=== PATIENT | male | born 1955 | race Caucasian/White ===

== ENCOUNTER 2016-12-12 14:37 | Inpatient (IN) | payer OTHER ==
[2016-12-12] MEDS ORDERED: Sodium Chloride 0.9% 1,000 ML IV ONE (15:12)
[2016-12-12] MEDS ORDERED: Sodium Chloride 0.9% 10 ML Syringe FLUSH PRN (15:12)
[2016-12-12] MEDS ORDERED: Pantoprazole 40 MG Vial IVPUSH ONE (15:13)
--- NOTE | 2016-12-12 15:20 | EDM.PDOC ---
ED HPI GI/ABDOMINAL - General Chief Complaint: Gastrointestinal Problem Stated Complaint: [facility] Time Seen by Provider: 12/12/16 14:52 Source of Information: Reports: Patient History Limitations: Reports: No limitations - History of Present Illness INITIAL COMMENTS - FREE TEXT/NARRATIVE: Patient is a 61-year-old male who presents to the ED complaining of black tarry stools for the past week. States he has been experiencing intermittent dizziness with body position changes with a few presyncopal episodes. States when he is bending over or exerting himself he gets increasingly short of breath , dizzy, with lightheadedness and develop some blurred vision. States the episodes have increased over the past week. States approximately 3 days prior to onset of black tarry stools he had some stomach pain with nausea and black hard stools present. Today he noticed some bright red blood within the toilet bowl described as minimal. Also stool has changed from hard to very loose today. States he's feeling weak, short of breath with exertion, has to stop multiple times to catch his breath. Today he was bending over and had a presyncopal episode thus prompting him to call 911. Denies any headache, fever/ chills, sore throat, chest pain, shortness of breath at rest, abdominal pain, recent out of country travel, questionable bad food, or prior history of GI bleed. Denies ibuprofen or daily asa use. States approximately 2 years ago he had EGD/colonoscopy with no abnormal findings. Past medical history includes hypertension and is on 3 different medications. Surgical history includes umbilical hernia with 2 inguinal hernias. Patient does not smoke, only occasionally alcohol use, and denies recreational drug use. No family history of colon cancer. Timing/Duration: Reports: Intermittent Improves with: Reports: lying down, other (sittign) Worsens with: Reports: other (bending over/exerting ) Context: Denies: sick contact, bad/questionable food, out of country travel, recent surgery, recent trauma Associated Symptoms: Reports: diarrhea, bloody stools, loss of appetite, malaise. 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: Other (see below) (none stated) - Related Data Allergies/ADRs: Allergies Allergy/AdvReac Type Severity Reaction Status Date / Time No Known Allergies Allergy Verified 12/12/16 14:48 Home Meds: Home Meds Hydrochlorothiazide 50 mg PO DAILY 12/12/16 [History] Lisinopril 20 mg PO DAILY 12/12/16 [History] amLODIPine [Norvasc] 10 mg PO DAILY 12/12/16 [History] Past Medical History Cardiovascular History: Reports: Hypertension - Past Surgical History GI Surgical History: Reports: Hernia, abdominal Social & Family History - Tobacco Use Smoking Status *Q: Never Smoker - Caffeine Use Caffeine Use: Reports: Coffee, Soda - Recreational Drug Use Recreational Drug Use: No ED ROS GENERAL - Review of Systems Review Of Systems: See Below Constitutional: Reports: malaise, weakness, fatigue, decreased appetite. Denies : fever, chills HEENT: Reports: No symptoms Respiratory: Reports: Cough, Sputum (clear phlegm). Denies: Shortness of Breath (at rest) Cardiovascular: Reports: Dyspnea on exertion, Lightheadedness, Syncope (near). Denies: Chest pain GI/Abdominal: Reports: Black stool, Bloody stool, Diarrhea, Decreased appetite, Melena. Denies: Abdominal pain, Nausea, Vomiting : Reports: no symptoms Musculoskeletal: Reports: no symptoms Skin: Reports: other (pale) Neurological: Reports: Dizziness (inermittent) ED EXAM, GI/ABD - Physical Exam Exam: See Below Exam Limited By: No limitations General Appearance: alert, WD/WN, no apparent distress Eyes: bilateral: pale conjunctiva Ears: hearing grossly normal Nose: normal inspection Throat/Mouth: Normal inspection, Normal oropharynx, Normal voice, No airway compromise Neck: normal inspection, supple. No: non-tender, lymphadenopathy (L), lymphadenopathy (R) Respiratory/Chest: no respiratory distress, lungs clear, normal breath sounds, no accessory muscle use, chest non-tender Cardiovascular: normal peripheral pulses, no murmur, tachycardia GI/Abdominal: normal bowel sounds, soft, non tender, no organomegaly, no distention, no abnormal bruit, no mass Rectal (Males) Exam: Normal rectal tone, Prostate normal, Black stool, Heme + stool. No: Hemorrhoids, Tenderness Back Exam: normal inspection. No: CVA tenderness (L), CVA tenderness (R) Neurological: alert, oriented, CN II-XII intact, normal cognition, no motor/ sensory deficits Psychiatric: normal affect, normal mood Skin Exam: Warm, Dry, Intact, Other (pale) Course - Vital Signs Last Recorded V/S: Last Vital Signs Temp 98.3 F 12/12/16 22:32 Pulse 85 12/12/16 22:32 Resp 16 12/12/16 20:39 BP 115/76 12/12/16 22:32 Pulse Ox 98 12/12/16 20:39 Orthostatic Blood Pressure [ 79/59 Standing] Orthostatic Blood Pressure [ 103/75 Sitting] Orthostatic Blood Pressure [ 118/80 Supine] - Orders/Labs/Meds Orders: Active Orders 24 hr Category Date Time Status Notify Provider [RC] ASDIRECTED Care 12/12/16 16:05 Active NPO Now [Nothing per Oral Now Diet] [DIET] Diet 12/12/16 Dinner Active Chest 1V Frontal [CR] Stat Exams 12/12/16 15:12 Taken Sodium Chloride 0.9% [Saline Flush] Med 12/12/16 15:12 Active 10 ml FLUSH ASDIRECTED PRN Peripheral IV Insertion Adult [OM.PC] Stat Oth 12/12/16 15:12 Ordered Transfuse PRBC [Transfuse Red Blood Cells] [COMM] Stat Ot 12/12/16 16:05 Ordered Medication Orders Acetaminophen (Tylenol) 650 mg PO Q4H PRN PRN Reason: Pain (Mild 1-3)/fever Hydrocodone Bitart/Acetaminophen ([place] 325-5 Mg) 1 tab PO Q4H PRN PRN Reason: Pain (moderate 4-6) Albuterol (Proventil Neb Soln) 2.5 mg NEB Q2H PRN PRN Reason: Shortness Of Breath/wheezing Amlodipine Besylate (Norvasc) 10 mg PO DAILY [facility] Hydrochlorothiazide (Hydrochlorothiazide) 50 mg PO DAILY [facility] Hydromorphone HCl (Dilaudid) 0.25 mg IVPUSH Q2H PRN PRN Reason: Pain (severe 7-10) Dextrose/Sodium Chloride (Dextrose 5%-1/2 Ns) 1,000 mls @ 150 mls/hr IV ASDIRECTED ERMIAS Lisinopril (Prinivil) 20 mg PO DAILY ERMIAS Ondansetron HCl (Zofran) 4 mg IV Q6H PRN PRN Reason: Nausea/Vomiting Pantoprazole Sodium (Protonix Iv) 40 mg IV Q12HR ERMIAS Last Admin: 12/12/16 20:41 Dose: 40 mg Sodium Chloride (Saline Flush) 10 ml FLUSH ASDIRECTED PRN PRN Reason: Keep Vein Open Last Admin: 12/12/16 15:37 Dose: 10 ml Temazepam (Restoril) 30 mg PO BEDTIME PRN PRN Reason: Sleep Labs: Laboratory Tests 12/12/16 12/12/16 12/12/16 Range/Units 15:48 15:48 15:48 WBC 9.71 H (4.23-9.07) K/mm3 RBC 1.68 L (4.63-6.08) M/mm3 Hgb 5.0 L* (13.7-17.5) gm/L Hct 15.8 L (40.1-51.0) % MCV 94.0 H (79.0-92.2) fl MCH 29.8 (25.7-32.2) pg MCHC 31.6 L (32.2-35.5) g/dl RDW Std Deviation 46.8 H (35.1-43.9) fL Plt Count 194 (163-337) K/mm3 MPV 10.0 (9.4-12.3) fl Neut % (Auto) 77.0 H (34.0-67.9) % Lymph % (Auto) 15.1 L (21.8-53.1) % [place] % (Auto) 4.9 L (5.3-12.2) % Eos % (Auto) 2.4 (0.8-7.0) Baso % (Auto) 0.4 (0.1-1.2) % Neut # (Auto) 7.47 H (1.78-5.38) K/mm3 Lymph # (Auto) 1.47 (1.32-3.57) K/mm3 [place] # (Auto) 0.48 (0.30-0.82) K/mm3 Eos # (Auto) 0.23 (0.04-0.54) K/mm3 Baso # (Auto) 0.04 (0.01-0.08) K/mm3 Manual Slide Review Abnormal smear PT 10.3 (8.0-13.0) SECONDS INR 0.95 APTT (22-36) SECONDS Sodium 145 (136-145) mEq/L Potassium 3.9 (3.5-5.1) mEq/L Chloride 111 H (98-107) mEq/L Carbon Dioxide 27 (21-32) mEq/L Anion Gap 10.9 (5-15) BUN 38 H (7-18) mg/dL Creatinine 1.4 H (0.7-1.3) mg/dL Est Cr Clr Drug Dosing 64.42 mL/min Estimated GFR (MDRD) 52 (>60) mL/min BUN/Creatinine Ratio 27.1 H (14-18) Glucose 133 H (80-115) mg/dL Calcium 8.1 L (8.5-10.1) mg/dL Total Bilirubin 0.2 (0.2-1.0) mg/dL AST 8 L (15-37) U/L ALT 11 L (16-63) U/L Alkaline Phosphatase 43 L (46-116) U/L Troponin I 0.020 (0.00-0.056) ng/mL C-Reactive Protein < 0.2 (<1.0) mg/dL Total Protein 5.0 L (6.4-8.2) g/dl Albumin 2.5 L (3.4-5.0) g/dl Globulin 2.5 gm/dL Albumin/Globulin Ratio 1.0 (1-2) Lipase 138 (73-393) U/L Urine Color (Yellow) Urine Appearance (Clear) Urine pH (5.0-8.0) Ur Specific [place] (1.005-1.030) Urine Protein (Negative) Urine Glucose (UA) (Negative) Urine Ketones (Negative) Urine Occult Blood (Negative) Urine Nitrite (Negative) Urine Bilirubin (Negative) Urine Urobilinogen (0.2-1.0) Ur Leukocyte Esterase (Negative) Urine RBC (0-5) /hpf Urine WBC (0-5) /hpf Ur Epithelial Cells (0-5) /hpf Urine Bacteria (FEW) /hpf Urine Mucus (FEW) /hpf Blood Type Gel Antibody Screen Crossmatch 12/12/16 12/12/16 12/12/16 Range/Units 15:48 15:48 15:48 WBC (4.23-9.07) K/mm3 RBC (4.63-6.08) M/mm3 Hgb (13.7-17.5) gm/L Hct (40.1-51.0) % MCV (79.0-92.2) fl MCH (25.7-32.2) pg MCHC (32.2-35.5) g/dl RDW Std Deviation (35.1-43.9) fL Plt Count (163-337) K/mm3 MPV (9.4-12.3) fl Neut % (Auto) (34.0-67.9) % Lymph % (Auto) (21.8-53.1) % [place] % (Auto) (5.3-12.2) % Eos % (Auto) (0.8-7.0) Baso % (Auto) (0.1-1.2) % Neut # (Auto) (1.78-5.38) K/mm3 Lymph # (Auto) (1.32-3.57) K/mm3 [place] # (Auto) (0.30-0.82) K/mm3 Eos # (Auto) (0.04-0.54) K/mm3 Baso # (Auto) (0.01-0.08) K/mm3 Manual Slide Review PT (8.0-13.0) SECONDS INR APTT 21 L (22-36) SECONDS Sodium (136-145) mEq/L Potassium (3.5-5.1) mEq/L Chloride (98-107) mEq/L Carbon Dioxide (21-32) mEq/L Anion Gap (5-15) BUN (7-18) mg/dL Creatinine (0.7-1.3) mg/dL Est Cr Clr Drug Dosing mL/min Estimated GFR (MDRD) (>60) mL/min BUN/Creatinine Ratio (14-18) Glucose (80-115) mg/dL Calcium (8.5-10.1) mg/dL Total Bilirubin (0.2-1.0) mg/dL AST (15-37) U/L ALT (16-63) U/L Alkaline Phosphatase (46-116) U/L Troponin I (0.00-0.056) ng/mL C-Reactive Protein 0.6 (<1.0) mg/dL Total Protein (6.4-8.2) g/dl Albumin (3.4-5.0) g/dl Globulin gm/dL Albumin/Globulin Ratio (1-2) Lipase (73-393) U/L Urine Color (Yellow) Urine Appearance (Clear) Urine pH (5.0-8.0) Ur Specific [place] (1.005-1.030) Urine Protein (Negative) Urine Glucose (UA) (Negative) Urine Ketones (Negative) Urine Occult Blood (Negative) Urine Nitrite (Negative) Urine Bilirubin (Negative) Urine Urobilinogen (0.2-1.0) Ur Leukocyte Esterase (Negative) Urine RBC (0-5) /hpf Urine WBC (0-5) /hpf Ur Epithelial Cells (0-5) /hpf Urine Bacteria (FEW) /hpf Urine Mucus (FEW) /hpf Blood Type A POSITIVE Gel Antibody Screen Negative Crossmatch See Detail 12/12/16 Range/Units 16:08 WBC (4.23-9.07) K/mm3 RBC (4.63-6.08) M/mm3 Hgb (13.7-17.5) gm/L Hct (40.1-51.0) % MCV (79.0-92.2) fl MCH (25.7-32.2) pg MCHC (32.2-35.5) g/dl RDW Std Deviation (35.1-43.9) fL Plt Count (163-337) K/mm3 MPV (9.4-12.3) fl Neut % (Auto) (34.0-67.9) % Lymph % (Auto) (21.8-53.1) % [place] % (Auto) (5.3-12.2) % Eos % (Auto) (0.8-7.0) Baso % (Auto) (0.1-1.2) % Neut # (Auto) (1.78-5.38) K/mm3 Lymph # (Auto) (1.32-3.57) K/mm3 [place] # (Auto) (0.30-0.82) K/mm3 Eos # (Auto) (0.04-0.54) K/mm3 Baso # (Auto) (0.01-0.08) K/mm3 Manual Slide Review PT (8.0-13.0) SECONDS INR APTT (22-36) SECONDS Sodium (136-145) mEq/L Potassium (3.5-5.1) mEq/L Chloride (98-107) mEq/L Carbon Dioxide (21-32) mEq/L Anion Gap (5-15) BUN (7-18) mg/dL Creatinine (0.7-1.3) mg/dL Est Cr Clr Drug Dosing mL/min Estimated GFR (MDRD) (>60) mL/min BUN/Creatinine Ratio (14-18) Glucose (80-115) mg/dL Calcium (8.5-10.1) mg/dL Total Bilirubin (0.2-1.0) mg/dL AST (15-37) U/L ALT (16-63) U/L Alkaline Phosphatase (46-116) U/L Troponin I (0.00-0.056) ng/mL C-Reactive Protein (<1.0) mg/dL Total Protein (6.4-8.2) g/dl Albumin (3.4-5.0) g/dl Globulin gm/dL Albumin/Globulin Ratio (1-2) Lipase (73-393) U/L Urine Color Light yellow (Yellow) Urine Appearance Clear (Clear) Urine pH 5.5 (5.0-8.0) Ur Specific [place] 1.015 (1.005-1.030) Urine Protein Negative (Negative) Urine Glucose (UA) Negative (Negative) Urine Ketones Negative (Negative) Urine Occult Blood Negative (Negative) Urine Nitrite Negative (Negative) Urine Bilirubin Negative (Negative) Urine Urobilinogen 0.2 (0.2-1.0) Ur Leukocyte Esterase Negative (Negative) Urine RBC 0-5 (0-5) /hpf Urine WBC 0-5 (0-5) /hpf Ur Epithelial Cells 0-5 (0-5) /hpf Urine Bacteria Rare (FEW) /hpf Urine Mucus Not seen (FEW) /hpf Blood Type Gel Antibody Screen Crossmatch Meds: Medications Generic Name Dose Route Start Last Admin Trade Name Freq PRN Reason Stop Dose Admin Acetaminophen 650 mg 12/12/16 17:19 Tylenol PO Q4H PRN Pain (Mild 1-3)/fever Hydrocodone Bitart/Acetaminophen 1 tab 12/12/16 17:19 Spencer 325-5 Mg PO Q4H PRN Pain (moderate 4-6) Albuterol 2.5 mg 12/12/16 17:19 Proventil Neb Soln NEB Q2H PRN Shortness Of Breath/wheezing Amlodipine Besylate 10 mg 12/13/16 09:00 Norvasc PO DAILY ERMIAS Hydrochlorothiazide 50 mg 12/13/16 09:00 Hydrochlorothiazide PO DAILY ERMIAS Hydromorphone HCl 0.25 mg 12/12/16 17:19 Dilaudid IVPUSH Q2H PRN Pain (severe 7-10) Dextrose/Sodium Chloride 1,000 mls @ 150 mls/hr 12/12/16 17:30 Dextrose 5%-1/2 Ns IV ASDIRECTED ERMIAS Lisinopril 20 mg 12/13/16 09:00 Prinivil PO DAILY ERMIAS Ondansetron HCl 4 mg 12/12/16 17:19 Zofran IV Q6H PRN Nausea/Vomiting Pantoprazole Sodium 40 mg 12/12/16 21:00 12/12/16 20:41 Protonix Iv IV 40 mg Q12HR ERMIAS Administration Sodium Chloride 10 ml 12/12/16 15:12 12/12/16 15:37 Saline Flush FLUSH 10 ml ASDIRECTED PRN Administration Keep Vein Open Temazepam 30 mg 12/12/16 17:19 Restoril PO BEDTIME PRN Sleep Discontinued Medications Generic Name Dose Route Start Last Admin Trade Name Freq PRN Reason Stop Dose Admin Sodium Chloride 1,000 mls @ 250 mls/hr 12/12/16 15:12 12/12/16 15:38 Normal Saline IV 12/12/16 19:11 250 mls/hr ONETIME ONE Administration Pantoprazole Sodium 40 mg 12/12/16 15:13 12/12/16 15:33 Protonix Iv IVPUSH 12/12/16 15:14 40 mg ONETIME ONE Administration - Re-Assessments/Exams Free Text/Narrative Re-Assessment/Exam: On examination patient is a pale to parents with dry oral mucosa. Vital signs, blood pressure stable, tachycardic, and afebrile. He is in no acute distress. Ordered peripheral IV with normal saline 250 mL per hour, and Protonix. Initial labs to include CBC, chem 14, CRP, lipase, type and screen, UA with micro, troponin, EKG, orthostatic vitals, and CXR. Hemoccult was grossly positive for blood. CXR: Reviewed with Dr. Jordan no acute findings noted. Final interpretation pending. EKG: Sinus tachycardia rate 110 with a SD interval 167 a QTC of 481. Mild ST depression in V4 V5. No reciprocal changes. No STEMI. Left axis deviation noted. CT study was ordered in error. Patient does not have abdominal pain. 12/12/16 15:23 12/12/16 1558 HGB back as 5.0. Discussed patient with Dr. Flores nonprofit manager General Surgeon. Request admitting to hospitalist service. She will see the patient this afternoon/evening. Labs reviewed. 1605 Ordered 3 units of PRBC. Patient has no cardiac history. Goal HGB is 8.0. Called Dr. Mohamud with no answer. Will try again in a few minutes. 12/12/16 16:51 Dr. Mohamud nonprofit manager hospitalist as accepted the patient. MCG obtained. Patient meets inpatient status, med surge with telemetry. Orders have been placed. Departure - Departure Time of Disposition: 16:53 Disposition: Admitted As Inpatient 66 Condition: fair Clinical Impression: Low hemoglobin, Orthostatic dizziness, Orthostatic hypotension GI (gastrointestinal bleed) Qualifiers: GI bleed type/associated pathology: unspecified gastrointestinal hemorrhage type Qualified Code(s): K92.2 - Gastrointestinal hemorrhage, unspecified - My Orders Last 24 Hours: My Active Orders 12/12/16 15:12 Chest 1V Frontal [CR] Stat Sodium Chloride 0.9% [Saline Flush] 10 ml FLUSH ASDIRECTED PRN Peripheral IV Insertion Adult [OM.PC] Stat 12/12/16 16:05 Notify Provider [RC] ASDIRECTED Transfuse PRBC [Transfuse Red Blood Cells] [COMM] Stat 12/12/16 Dinner NPO Now [Nothing per Oral Now Diet] [DIET] - Assessment/Plan Last 24 Hours: My Active Orders 12/12/16 15:12 Chest 1V Frontal [CR] Stat Sodium Chloride 0.9% [Saline Flush] 10 ml FLUSH ASDIRECTED PRN Peripheral IV Insertion Adult [OM.PC] Stat 12/12/16 16:05 Notify Provider [RC] ASDIRECTED Transfuse PRBC [Transfuse Red Blood Cells] [COMM] Stat 12/12/16 Dinner NPO Now [Nothing per Oral Now Diet] [DIET]
--- NOTE | 2016-12-12 16:56 | PCM.HP ---
H&P History of Present Illness - General Date of Service: 12/12/16 Admit Problem/Dx: GI Bleed Source of Information: Patient, Provider, RN notes reviewed History Limitations: Reports: No limitations - History of Present Illness Initial Comments - Free Text/Narative: This is a 61 yo white male with past medical hx/o HTN who comes in with 1 week hx/o of black tarry stools associated with dizziness, lightheadedness, weakness , shortness of breath and a few episode of near syncope. Patient reports that he had stomach pain associated with nausea and vomiting 3 days prior to onset of black tarry stools. Patient carries no hx/o constipation but today he noticed some bright red blood on the toilet and his stool is now more loose then usual. Patient admits to having sick contact with his older brother who the had the same symptoms. He does not re-call sharing same food or drinks with him. He does admit however in the the past, he had stomach aches that would get better with milk. Patient carries a hx/o GERD but lately it has not given him any trouble. Currently denies any fever, chills, no chest pain, abdominal pain, nausea or vomiting. Patient denies any previous GI bleed in the past. His most recent endoscopy was 2- years ago without abnormal findings. His initial work up in ED shows a CBC remarkable for WBC of 9.71, Hgb 5, Hct of 15.8, and MCV of 94. His chemistry is remarkable for Cl of 111, BUN of 38, Cr of 1.4, BS of 133, Ca of 98.1, AST of 8, ALT of 11. Alk Phos of 43, Total protein of 5.0, and Albumin of 2.5. His UA is negative for UTI. His CXR shows no acute abnormal findings. Patient will be admitted under the hospitalist services for GI Bleed. His code status is full. - Related Data Allergies/Adverse Reactions: Allergies Allergy/AdvReac Type Severity Reaction Status Date / Time No Known Allergies Allergy Verified 12/12/16 14:48 Home Medications: Home Meds Hydrochlorothiazide 50 mg PO DAILY 12/12/16 [History] Lisinopril 20 mg PO DAILY 12/12/16 [History] amLODIPine [Norvasc] 10 mg PO DAILY 12/12/16 [History] Past Medical History Cardiovascular History: Reports: Hypertension - Past Surgical History GI Surgical History: Reports: Hernia, abdominal Social & Family History - Tobacco Use Smoking Status *Q: Never Smoker - Caffeine Use Caffeine Use: Reports: Coffee, Soda - Recreational Drug Use Recreational Drug Use: No H&P Review of Systems - Review of Systems: Review Of Systems: See Below General: Reports: malaise, weakness, fatigue, decreased appetite. Denies: fever , chills HEENT: Reports: no symptoms Pulmonary: Reports: Cough, Sputum. Denies: Shortness of Breath Cardiovascular: Reports: dyspnea on exertion, lightheadedness, blood pressure problem, other (near syncope). Denies: chest pain, palpitations Gastrointestinal: Reports: Black stool, Bloody stool, Diarrhea, Melena. Denies : Abdominal pain, Nausea, Vomiting Genitourinary: Reports: no symptoms Musculoskeletal: Reports: no symptoms Skin: Denies: cyanosis, jaundice, bruising, rash, erythema, wound Psychiatric: Denies: depression, anxiety, hallucinations, suicidal ideation, hallucinations (auditory) Neurological: Reports: Dizziness, Weakness. Denies: Confusion, Seizure, Syncope , Difficulty Walking Hematologic/Lymphatic: Reports: anemia Immunologic: Reports: no symptoms Exam - Exam Exam: See Below - Vital Signs Vital Signs: Last Vital Signs Temp 36.9 C 12/12/16 14:42 Pulse 112 H 12/12/16 14:42 Resp 19 12/12/16 14:42 BP 132/89 12/12/16 14:42 Pulse Ox 98 12/12/16 14:42 Orthostatic Blood Pressure [ 79/59 Standing] Orthostatic Blood Pressure [ 103/75 Sitting] Orthostatic Blood Pressure [ 118/80 Supine] Weight: 90.718 kg - Exam General: alert, oriented, other (Pale) HEENT: Conjunctiva clear, EACs clear, EOMI, Hearing intact, Mucosa moist & pink , Nares patent, Normal nasal septum, Posterior pharynx clear, Pupils equal, Pupils reactive Neck: supple, trachea midline, 2+ carotid pulse wo bruit Lungs: Clear to auscultation, Normal respiratory effort Cardiovascular: regular rate, regular rhythm Abdomen: normal bowel sounds, soft. No: organomegaly, peritoneal signs, distention, guarding, rigidity, rebound, tenderness Rectal (Males) Exam: Deferred Back Exam: normal inspection, decreased range of motion Extremities: normal inspection, normal pulses, other. No: clubbing, cyanosis, calf tenderness, edema Skin: warm, dry, intact, cool, other (Pale) Neuro Extensive - Mental Status: oriented x3, normal cognition, memory intact Neuro Extensive - Motor, Sensory, Reflexes: CN II-XII intact, normal gait Psychiatric: alert, normal affect, normal mood. No: homicidal ideation, hallucinations - Patient Data Lab Results last 24 hrs: Laboratory Results - last 24 hr 12/12/16 12/12/16 12/12/16 Range/Units 15:48 15:48 15:48 WBC 9.71 H (4.23-9.07) K/mm3 RBC 1.68 L (4.63-6.08) M/mm3 Hgb 5.0 L* (13.7-17.5) gm/L Hct 15.8 L (40.1-51.0) % MCV 94.0 H (79.0-92.2) fl MCH 29.8 (25.7-32.2) pg MCHC 31.6 L (32.2-35.5) g/dl RDW Std Deviation 46.8 H (35.1-43.9) fL Plt Count 194 (163-337) K/mm3 MPV 10.0 (9.4-12.3) fl Neut % (Auto) 77.0 H (34.0-67.9) % Lymph % (Auto) 15.1 L (21.8-53.1) % [place] % (Auto) 4.9 L (5.3-12.2) % Eos % (Auto) 2.4 (0.8-7.0) Baso % (Auto) 0.4 (0.1-1.2) % Neut # (Auto) 7.47 H (1.78-5.38) K/mm3 Lymph # (Auto) 1.47 (1.32-3.57) K/mm3 [place] # (Auto) 0.48 (0.30-0.82) K/mm3 Eos # (Auto) 0.23 (0.04-0.54) K/mm3 Baso # (Auto) 0.04 (0.01-0.08) K/mm3 Manual Slide Review Abnormal smear PT 10.3 (8.0-13.0) SECONDS INR 0.95 APTT (22-36) SECONDS Sodium 145 (136-145) mEq/L Potassium 3.9 (3.5-5.1) mEq/L Chloride 111 H (98-107) mEq/L Carbon Dioxide 27 (21-32) mEq/L Anion Gap 10.9 (5-15) BUN 38 H (7-18) mg/dL Creatinine 1.4 H (0.7-1.3) mg/dL Est Cr Clr Drug Dosing 64.42 mL/min Estimated GFR (MDRD) 52 (>60) mL/min BUN/Creatinine Ratio 27.1 H (14-18) Glucose 133 H (80-115) mg/dL Calcium 8.1 L (8.5-10.1) mg/dL Total Bilirubin 0.2 (0.2-1.0) mg/dL AST 8 L (15-37) U/L ALT 11 L (16-63) U/L Alkaline Phosphatase 43 L (46-116) U/L Troponin I 0.020 (0.00-0.056) ng/mL C-Reactive Protein < 0.2 (<1.0) mg/dL Total Protein 5.0 L (6.4-8.2) g/dl Albumin 2.5 L (3.4-5.0) g/dl Globulin 2.5 gm/dL Albumin/Globulin Ratio 1.0 (1-2) Lipase 138 (73-393) U/L Urine Color (Yellow) Urine Appearance (Clear) Urine pH (5.0-8.0) Ur Specific [place] (1.005-1.030) Urine Protein (Negative) Urine Glucose (UA) (Negative) Urine Ketones (Negative) Urine Occult Blood (Negative) Urine Nitrite (Negative) Urine Bilirubin (Negative) Urine Urobilinogen (0.2-1.0) Ur Leukocyte Esterase (Negative) Urine RBC (0-5) /hpf Urine WBC (0-5) /hpf Ur Epithelial Cells (0-5) /hpf Urine Bacteria (FEW) /hpf Urine Mucus (FEW) /hpf Blood Type Gel Antibody Screen Crossmatch 12/12/16 12/12/16 12/12/16 Range/Units 15:48 15:48 16:08 WBC (4.23-9.07) K/mm3 RBC (4.63-6.08) M/mm3 Hgb (13.7-17.5) gm/L Hct (40.1-51.0) % MCV (79.0-92.2) fl MCH (25.7-32.2) pg MCHC (32.2-35.5) g/dl RDW Std Deviation (35.1-43.9) fL Plt Count (163-337) K/mm3 MPV (9.4-12.3) fl Neut % (Auto) (34.0-67.9) % Lymph % (Auto) (21.8-53.1) % [place] % (Auto) (5.3-12.2) % Eos % (Auto) (0.8-7.0) Baso % (Auto) (0.1-1.2) % Neut # (Auto) (1.78-5.38) K/mm3 Lymph # (Auto) (1.32-3.57) K/mm3 [place] # (Auto) (0.30-0.82) K/mm3 Eos # (Auto) (0.04-0.54) K/mm3 Baso # (Auto) (0.01-0.08) K/mm3 Manual Slide Review PT (8.0-13.0) SECONDS INR APTT 21 L (22-36) SECONDS Sodium (136-145) mEq/L Potassium (3.5-5.1) mEq/L Chloride (98-107) mEq/L Carbon Dioxide (21-32) mEq/L Anion Gap (5-15) BUN (7-18) mg/dL Creatinine (0.7-1.3) mg/dL Est Cr Clr Drug Dosing mL/min Estimated GFR (MDRD) (>60) mL/min BUN/Creatinine Ratio (14-18) Glucose (80-115) mg/dL Calcium (8.5-10.1) mg/dL Total Bilirubin (0.2-1.0) mg/dL AST (15-37) U/L ALT (16-63) U/L Alkaline Phosphatase (46-116) U/L Troponin I (0.00-0.056) ng/mL C-Reactive Protein (<1.0) mg/dL Total Protein (6.4-8.2) g/dl Albumin (3.4-5.0) g/dl Globulin gm/dL Albumin/Globulin Ratio (1-2) Lipase (73-393) U/L Urine Color Light yellow (Yellow) Urine Appearance Clear (Clear) Urine pH 5.5 (5.0-8.0) Ur Specific [place] 1.015 (1.005-1.030) Urine Protein Negative (Negative) Urine Glucose (UA) Negative (Negative) Urine Ketones Negative (Negative) Urine Occult Blood Negative (Negative) Urine Nitrite Negative (Negative) Urine Bilirubin Negative (Negative) Urine Urobilinogen 0.2 (0.2-1.0) Ur Leukocyte Esterase Negative (Negative) Urine RBC 0-5 (0-5) /hpf Urine WBC 0-5 (0-5) /hpf Ur Epithelial Cells 0-5 (0-5) /hpf Urine Bacteria Rare (FEW) /hpf Urine Mucus Not seen (FEW) /hpf Blood Type A POSITIVE Gel Antibody Screen Negative Crossmatch See Detail Result Diagrams: 12/12/16 15:48 12/12/16 15:48 *Q Meaningful Use (ADM) - VTE *Q VTE Criteria *Q: - Stroke *Q Stroke Criteria *Q: - AMI *Q AMI Criteria *Q: Problem List Initiated/Reviewed/Updated: Yes Orders Last 24hrs: Active Orders 24 hr Category Date Time Status EKG Documentation Completion [RC] STAT Care 12/12/16 15:11 Active Notify Provider [RC] ASDIRECTED Care 12/12/16 16:05 Active Orthostatic Vital Signs [RC] ASDIRECTED Care 12/12/16 15:27 Active Peripheral IV Care [RC] . DIRECTED Care 12/12/16 15:12 Active NPO Now [Nothing per Oral Now Diet] [DIET] Diet 12/12/16 Dinner Active Chest 1V Frontal [CR] Stat Exams 12/12/16 15:12 Taken PATIENT RETYPE [BBK] Stat Lab 12/12/16 15:48 Results RED BLOOD CELLS LP [BBK] Stat Lab 12/12/16 15:48 Results TYPE AND SCREEN [BBK] Stat Lab 12/12/16 15:48 Results Sodium Chloride 0.9% [Normal Saline] 1,000 ml Med 12/12/16 15:12 Active IV ONETIME Sodium Chloride 0.9% [Saline Flush] Med 12/12/16 15:12 Active 10 ml FLUSH ASDIRECTED PRN Peripheral IV Insertion Adult [OM.PC] Stat Oth 12/12/16 15:12 Ordered Transfuse PRBC [Transfuse Red Blood Cells] [COMM] Stat Ot 12/12/16 16:05 Ordered Medication Orders Sodium Chloride (Normal Saline) 1,000 mls @ 250 mls/hr IV ONETIME ONE Stop: 12/12/16 19:11 Last Admin: 12/12/16 15:38 Dose: 250 mls/hr Sodium Chloride (Saline Flush) 10 ml FLUSH ASDIRECTED PRN PRN Reason: Keep Vein Open Last Admin: 12/12/16 15:37 Dose: 10 ml Assessment/Plan Comment:: Assessment/Plan: Acute: Symptomatic Anemia - 2/2 GI Bleed - Hgb is 5 - Positive for Orthostasis - Currently receiving blood transfusion GI Bleed - No previous hx/o GI bled in the past - No hx/o diverticulosis/diverticulitis or hermorrhoids - Recent EGD/Colonoscopy: 2 years ago with no abnormal findings - He is not on any blood thinners: anti-platelets or anticoags - No NSAIDs or ASA use - Does not drinks ETOH - No illicit drug use - No family hx/o GI cancer - Typed and Crossed 3 units for PRBCs, currently transfusing - Dr. Flores has been consulted for further eval in ED Orthostatic Hypotension - 2/2 Volume Loss form GI bleed - Volume Resuscitative Measures Loose Bowel - No recent travel outside the country - No unusual food or drink - No hx/o GI or PUD in the past - No recent Abx use - Supportive care Chronic: HTN Hx/o Umbilical and Inguinal Hernia S/p Surgery Plan: Admit to inpatient Volume Resuscitative measures Currently transfusing blood Close monitoring for hemodynamic instability NPO except ice chips, sips of water for now until he is further evaluated by General Surgery PPIs BID Routine AM Labs No blood thinners DVT prophylaxis: SCDs for now due to active bleed PT/OT consult Additional orders as above Code status: 1
[2016-12-12] MEDS ORDERED: Acetaminophen 325 MG Tab PO PRN (17:19)
[2016-12-12] MEDS ORDERED: HYDROmorphone 1 MG/ML Syringe IVPUSH PRN (17:19)
[2016-12-12] MEDS ORDERED: Temazepam 15 MG Cap PO PRN (17:19)
[2016-12-12] MEDS ORDERED: Ondansetron 4 MG/2 ML SDV IV PRN (17:19)
[2016-12-12] MEDS ORDERED: Albuterol 0.083% 2.5 MG/3 ML Neb Soln NEB PRN (17:19)
[2016-12-12] MEDS ORDERED: Acetaminophen/HYDROcodone 325-5 MG Tab PO PRN (17:19)
[2016-12-12] MEDS: Pantoprazole 40 MG Vial IV SCH (20:41)
[2016-12-13] MEDS: Dextrose 5%-0.45% NaCl 1,000 ML IV SCH ×3 (00:47→17:57)
--- NOTE | 2016-12-13 07:55 | PCM.PN ---
- General Info Date of Service: 12/13/16 Admission Dx/Problem (Free Text): GI Bleed Subjective Update: Follow up Functional Status: Reports: pain controlled, ambulating, urinating. Denies: new symptoms - Review of Systems General: Denies: Fever, Weakness, Fatigue, Malaise, Chills HEENT: Reports: no symptoms Pulmonary: Denies: shortness of breath Cardiovascular: Denies: Chest Pain, Palpitations, Dyspnea on Exertion Gastrointestinal: Reports: Flatus. Denies: Abdominal pain, Diarrhea, Nausea, Vomiting Genitourinary: Reports: no symptoms Musculoskeletal: Reports: no symptoms Skin: Denies: cyanosis, jaundice, pruritis, rash Neurological: Denies: Confusion, Seizure, Syncope, Weakness Psychiatric: Denies: depression, anxiety, hallucinations, suicidal ideation, homicidal ideation Systems Review Comment:: No overnight or acute issues. He received 3 units of PRBCs overnight. However his Hgb is 7.1 this am. He no active bleed or new complaints reported. He is comfortable and in no acute distress when I saw him at bedside during morning rounds. - Patient Data Vitals - most recent: Last Vital Signs Temp 37.6 C 12/13/16 07:28 Pulse 75 12/13/16 07:28 Resp 14 12/13/16 07:28 BP 111/76 12/13/16 07:28 Pulse Ox 97 12/13/16 07:28 Weight - most recent: 90.809 kg I&O - last 24 hours: Intake & Output 12/12/16 12/13/16 12/13/16 22:59 06:59 14:59 Intake Total 720 510 Output Total 725 Balance 720 -215 Lab Results last 24 hrs: Laboratory Results - last 24 hr 12/13/16 12/13/16 Range/Units 06:09 06:09 WBC 7.04 (4.23-9.07) K/mm3 RBC 2.51 L (4.63-6.08) M/mm3 Hgb 7.1 L* (13.7-17.5) gm/L Hct 22.1 L (40.1-51.0) % MCV 88.0 (79.0-92.2) fl MCH 28.3 (25.7-32.2) pg MCHC 32.1 L (32.2-35.5) g/dl RDW Std Deviation 46.8 H (35.1-43.9) fL Plt Count 144 L (163-337) K/mm3 MPV 10.8 (9.4-12.3) fl Neut % (Auto) 70.3 H (34.0-67.9) % Lymph % (Auto) 19.0 L (21.8-53.1) % [place] % (Auto) 6.0 (5.3-12.2) % Eos % (Auto) 4.3 (0.8-7.0) Baso % (Auto) 0.3 (0.1-1.2) % Neut # (Auto) 4.95 (1.78-5.38) K/mm3 Lymph # (Auto) 1.34 (1.32-3.57) K/mm3 [place] # (Auto) 0.42 (0.30-0.82) K/mm3 Eos # (Auto) 0.30 (0.04-0.54) K/mm3 Baso # (Auto) 0.02 (0.01-0.08) K/mm3 Sodium 144 (136-145) mEq/L Potassium 3.7 (3.5-5.1) mEq/L Chloride 109 H (98-107) mEq/L Carbon Dioxide 27 (21-32) mEq/L Anion Gap 11.7 (5-15) BUN 27 H (7-18) mg/dL Creatinine 1.2 (0.7-1.3) mg/dL Est Cr Clr Drug Dosing 70.95 mL/min Estimated GFR (MDRD) > 60 (>60) mL/min BUN/Creatinine Ratio 22.5 H (14-18) Glucose 136 H (80-115) mg/dL Calcium 8.0 L (8.5-10.1) mg/dL Magnesium 2.1 (1.8-2.4) mg/dl C-Reactive Protein < 0.2 (<1.0) mg/dL Med Orders - Current: Current Medications Acetaminophen (Tylenol) 650 mg PO Q4H PRN PRN Reason: Pain (Mild 1-3)/fever Hydrocodone Bitart/Acetaminophen ([place] 325-5 Mg) 1 tab PO Q4H PRN PRN Reason: Pain (moderate 4-6) Albuterol (Proventil Neb Soln) 2.5 mg NEB Q2H PRN PRN Reason: Shortness Of Breath/wheezing Amlodipine Besylate (Norvasc) 10 mg PO DAILY [facility] Hydrochlorothiazide (Hydrochlorothiazide) 50 mg PO DAILY [facility] Hydromorphone HCl (Dilaudid) 0.25 mg IVPUSH Q2H PRN PRN Reason: Pain (severe 7-10) Dextrose/Sodium Chloride (Dextrose 5%-1/2 Ns) 1,000 mls @ 150 mls/hr IV ASDIRECTED [facility] Last Admin: 12/13/16 07:48 Dose: 150 mls/hr Lisinopril (Prinivil) 20 mg PO DAILY [facility] Ondansetron HCl (Zofran) 4 mg IV Q6H PRN PRN Reason: Nausea/Vomiting Pantoprazole Sodium (Protonix Iv) 40 mg IV Q12HR [facility] Last Admin: 12/12/16 20:41 Dose: 40 mg Sodium Chloride (Saline Flush) 10 ml FLUSH ASDIRECTED PRN PRN Reason: Keep Vein Open Last Admin: 12/12/16 15:37 Dose: 10 ml Temazepam (Restoril) 30 mg PO BEDTIME PRN PRN Reason: Sleep Discontinued Medications Sodium Chloride (Normal Saline) 1,000 mls @ 250 mls/hr IV ONETIME ONE Stop: 12/12/16 19:11 Last Admin: 12/12/16 15:38 Dose: 250 mls/hr Pantoprazole Sodium (Protonix Iv) 40 mg IVPUSH ONETIME ONE Stop: 12/12/16 15:14 Last Admin: 12/12/16 15:33 Dose: 40 mg - Exam General: alert, oriented, cooperative, no acute distress HEENT: Pupils equal, Pupils reactive, EOMI, Mucous membr. moist/pink Neck: supple, trachea midline, no JVD Lungs: Clear to auscultation, Normal respiratory effort Cardiovascular: Regular Rate, Regular Rhythm Abdomen: bowel sounds present, soft, no tenderness, no distension (Male) Exam: Deferred Back Exam: normal inspection, decreased range of motion Extremities: no edema, normal pulses, no tenderness/swelling, no clubbing, no cyanosis, no calf tenderness Peripheral Pulses: 3+: posterior tibial (L), posterior tibial (R), dorsalis pedis (L), dorsalis pedis (R) Skin: warm, dry, intact Neurological: no new focal deficit Psy/Mental Status: alert, normal affect, normal mood - Problem List Review Problem List Initiated/Reviewed/Updated: Yes - My Orders Last 24 Hours: My Active Orders 12/12/16 17:19 Cardiac Monitoring [RC] CONTINUOUS Height and Weight [RC] 04 Intake and Output [RC] 04,16 Oxygen Therapy [RC] PRN Up With Assistance [RC] ASDIRECTED Up ad [place] [RC] ASDIRECTED VTE/DVT Education [RC] QSHIFT Vital Signs [RC] Q4HR Acetaminophen [Tylenol] 650 mg PO Q4H PRN Acetaminophen/HYDROcodone [[place] 325-5 MG] 1 tab PO Q4H PRN Albuterol [Proventil Neb Soln] 2.5 mg NEB Q2H PRN HYDROmorphone [Dilaudid] 0.25 mg IVPUSH Q2H PRN Ondansetron [Zofran] 4 mg IV Q6H PRN Temazepam [Restoril] 30 mg PO BEDTIME PRN Sequential Compression Device [OM.PC] Per Unit Routine Resuscitation Status Routine 12/12/16 17:21 Antiembolic Devices [RC] QSHIFT RT Aerosol Therapy [RC] ASDIRECTED Consult to Case Management [CONS] Routine Consult to Physician [CONS] Routine Consult to Socially Responsible Investment Adviser [CONS] Routine OT Evaluation and Treatment [CONS] Routine PT Evaluation and Treatment [CONS] Routine 12/12/16 17:22 Notify Provider Consults [RC] ASDIRECTED 12/12/16 17:30 Dextrose 5%-0.45% NaCl [Dextrose 5%-1/2 NS] 1,000 ml IV ASDIRECTED 12/12/16 21:00 Pantoprazole [ProTONIX IV] 40 mg IV Q12HR 12/12/16 Dinner Nothing per Oral Now Diet [DIET] 12/13/16 06:09 CBC WITH AUTO DIFF [HEME] AM 12/13/16 09:00 Hydrochlorothiazide 50 mg PO DAILY Lisinopril [Prinivil] 20 mg PO DAILY amLODIPine [Norvasc] 10 mg PO DAILY 12/14/16 05:11 BASIC METABOLIC PANEL,BMP [CHEM] AM CBC WITH AUTO DIFF [HEME] AM MAGNESIUM [CHEM] AM 12/15/16 05:11 BASIC METABOLIC PANEL,BMP [CHEM] AM CBC WITH AUTO DIFF [HEME] AM MAGNESIUM [CHEM] AM - Plan Plan:: Assessment/Plan: Acute: Anemia - Now asymptomatic - 2/2 GI Bleed - Hgb is 5, now 7.1 status post 3 units of PRBC transfusion - No longer orthostasis - Will repeat Hgb level at noon - No active bleed - Consider Iron Infusion GI Bleed - No previous hx/o GI bled in the past - No hx/o diverticulosis/diverticulitis or hermorrhoids - Recent EGD/Colonoscopy: he has not had this done in the past upon further clarification with patient, instead he had cystoscopy - He is not on any blood thinners: anti-platelets or anticoags - No NSAIDs or ASA use - Does not drinks ETOH - No illicit drug use - No family hx/o GI cancer - Status post 3 units of PRBC transfusion - Dr. Flores in to see him, endoscopy in am Resolved: S/p Orthostatic Hypotension - 2/2 Volume Loss form GI bleed - Volume Resuscitative Measures S/p Loose Bowel - No recent travel outside the country - No unusual food or drink - No hx/o GI or PUD in the past - No recent Abx use - Supportive care Chronic: HTN Hx/o Umbilical and Inguinal Hernia S/p Surgery Plan: Continue current treatment PO level defer to [facility] Endoscopy with bowel prep orders as per Dr. Flores Routine AM Labs No blood thinners DVT prophylaxis: SCDs for now due to active bleed Additional orders as above Code status: 1
[2016-12-13] MEDS: Pantoprazole 40 MG Vial IV SCH ×3 (08:55→22:21)
[2016-12-13] MEDS ORDERED: Non-Formulary Medication 1 Each (Hydrochlorothiazide [Hydrochlorothiazide] 50 MG) PO SCH (09:00)
--- NOTE | 2016-12-13 10:36 | PCM.CONS ---
H&P History of Present Illness - General Date of Service: 12/13/16 Admit Problem/Dx: GI Bleed - History of Present Illness Initial Comments - Free Text/Narative: History of Present Illness The patient is a 61-year-old man who presented to the emergency department yesterday via ambulance for near syncope. The patient states that 10 days ago he developed what he felt was an upper GI illness. The patient had pain in the periumbilical area. This subsequently resolved. There was no N/V/diarrhea. His brother had a similar illness. The last 3 days of the illness he had some associated nausea, but no nausea. The pain and nausea then completely resolved. The patient then began having black stools. He also has been feeling weak. He has been diaphoretic at times and had multiple near syncopal episodes. He has experienced dizziness and lightheadedness as well as a general fatigue. He has had shortness of breath with having to take "deeper breaths" with activity. His had researched his symptoms on the Internet and he had started on OTC iron on Wednesday as well as prune juice. He also stopped his blood pressure medication to see if this would help with his dizziness. Yesterday the patient's vision became blurry at home he was unable to get ahold of his brothers to bring him into the hospital and he called 911. He denies any diarrhea, in fact he felt his stools have been hard. He usually has bowel movements once in the morning but he has been having to strain somewhat and he also states that on Wednesday he sat on the toilet for a long time as he felt unwell and although there was no blood on the tissue paper or with wiping he noticed blood seeping out of the stool into the surrounding toilet water. He rarely has heartburn and takes only about 5-6 Tums per year. He did take Pepto-Bismol about 3 times this week with his gastrointestinal illness. He rarely has heartburn. He denies any NSAID use. No alcohol or tobacco use. He has no prior history of EGD and colonoscopy, The patient has only had a cystoscopy which was due to some penile bleeding. A biopsy of some tissue was performed during the cystoscopy and he was treated for an infection, he states he has had no problems since. About 2 years ago the patient did have a thorough workup by Dr. Gisela Morales, Internal Medicine. He did have a stress test at that time which was unremarkable and he intentionally lost about 40 pounds and has been maintaining that weight loss. He does note some increased phlegm in the morning and a general lack of energy. He also has some dull pressure in his left groin area of his previous inguinal hernia repair. He was admitted yesterday evening to Dr. Mohamud and has had 3 units of PRBCs. His Hb has increased from 5 at admission to 7.1. Review of Systems Denies any exertional chest pain. No history of any easy bleeding or bruising. No history of clotting disorders. No history of anesthetic complications. All other systems reviewed and were negative except as per history of present illness. Past Medical History Hypertension Urinary tract infection resulting in penile bleeding, resolved Rheumatic fever as a child Past Surgical History Umbilical hernia repair, patient not aware of this included mesh or not Laparoscopic inguinal hernia repair on the left with mesh Cystoscopy with biopsy Meds Hydrochlorothiazide, lisinopril, amlodipine ALLERGIES No known drug allergies Social History Lives with brother in apartment. from his . Has 2 children and several stepchildren. Does not smoke or use alcohol. Denies illicit drug use. 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 Patient's mother lives in [place]. Family History Mother's family has a history of leukemia/cancer. Mother is alive at 85. 2 uncles on mother side had leukemia, one had asbestos related cancer. Father side has multiple individuals with coronary artery disease. Patient's father is and had 3 open-heart surgeries for coronary artery disease. No family history of colon cancer, colon polyps, or inflammatory bowel disease. - Related Data Allergies/Adverse Reactions: Allergies Allergy/AdvReac Type Severity Reaction Status Date / Time No Known Allergies Allergy Verified 12/12/16 14:48 Home Medications: Home Meds Hydrochlorothiazide 50 mg PO DAILY 12/12/16 [History] Lisinopril 20 mg PO DAILY 12/12/16 [History] amLODIPine [Norvasc] 10 mg PO DAILY 12/12/16 [History] Past Medical History Cardiovascular History: Reports: Hypertension - Infectious Disease History Infectious Disease History: Reports: Rheumatic Fever - Past Surgical History GI Surgical History: Reports: Hernia, abdominal, Hernia, inguinal Female Surgical History: Reports: Cystoscopy Social & Family History - Family History Family Medical History: Noncontributory - Tobacco Use Smoking Status *Q: Never Smoker Used Tobacco, but Quit: No Tobacco Use Comment: pt states that he smoked about 1 ppd for approximately 5 or 6 years and quit 40 years ago Second Hand Smoke Exposure: No - Caffeine Use Caffeine Use: Reports: Coffee, Soda - Recreational Drug Use Recreational Drug Use: No H&P Review of Systems - Review of Systems: Review Of Systems: ROS reveals no pertinent complaints other than HPI. Exam - Exam Exam: See Below - Vital Signs Vital Signs: Last Vital Signs Temp 99.7 F 12/13/16 07:28 Pulse 75 12/13/16 07:28 Resp 14 12/13/16 07:28 BP 111/76 12/13/16 07:28 Pulse Ox 97 12/13/16 07:28 Weight: 200 lb 3.2 oz - Exam Quality Assessment: No: supplemental oxygen General: alert, oriented, cooperative HEENT: Conjunctiva clear, Hearing intact. No: Scleral icterus Neck: supple, trachea midline, 2 Lungs: Clear to auscultation, Normal respiratory effort Cardiovascular: regular rate, regular rhythm Abdomen: soft. No: peritoneal signs, distention, guarding, rigidity, tenderness (Male) Exam: No hernia Rectal (Males) Exam: Deferred (performed in ED with + guaiac ) Extremities: normal inspection. No: clubbing, cyanosis, calf tenderness Skin: warm, dry, intact Neurological: cranial nerves intact, normal speech. No: focal deficit Neuro Extensive - Mental Status: alert, oriented x3, normal mood/affect, normal cognition, memory intact Psychiatric: alert, normal affect, normal mood - Patient Data Lab Results last 24 hrs: Laboratory Results - last 24 hr 12/13/16 12/13/16 Range/Units 06:09 06:09 WBC 7.04 (4.23-9.07) K/mm3 RBC 2.51 L (4.63-6.08) M/mm3 Hgb 7.1 L* (13.7-17.5) gm/L Hct 22.1 L (40.1-51.0) % MCV 88.0 (79.0-92.2) fl MCH 28.3 (25.7-32.2) pg MCHC 32.1 L (32.2-35.5) g/dl RDW Std Deviation 46.8 H (35.1-43.9) fL Plt Count 144 L (163-337) K/mm3 MPV 10.8 (9.4-12.3) fl Neut % (Auto) 70.3 H (34.0-67.9) % Lymph % (Auto) 19.0 L (21.8-53.1) % [place] % (Auto) 6.0 (5.3-12.2) % Eos % (Auto) 4.3 (0.8-7.0) Baso % (Auto) 0.3 (0.1-1.2) % Neut # (Auto) 4.95 (1.78-5.38) K/mm3 Lymph # (Auto) 1.34 (1.32-3.57) K/mm3 [place] # (Auto) 0.42 (0.30-0.82) K/mm3 Eos # (Auto) 0.30 (0.04-0.54) K/mm3 Baso # (Auto) 0.02 (0.01-0.08) K/mm3 Manual Slide Review Abnormal smear Sodium 144 (136-145) mEq/L Potassium 3.7 (3.5-5.1) mEq/L Chloride 109 H (98-107) mEq/L Carbon Dioxide 27 (21-32) mEq/L Anion Gap 11.7 (5-15) BUN 27 H (7-18) mg/dL Creatinine 1.2 (0.7-1.3) mg/dL Est Cr Clr Drug Dosing 70.95 mL/min Estimated GFR (MDRD) > 60 (>60) mL/min BUN/Creatinine Ratio 22.5 H (14-18) Glucose 136 H (80-115) mg/dL Calcium 8.0 L (8.5-10.1) mg/dL Magnesium 2.1 (1.8-2.4) mg/dl C-Reactive Protein < 0.2 (<1.0) mg/dL Result Diagrams: 12/13/16 06:09 12/13/16 06:09 Consult PN Assessment/Plan (1) GI (gastrointestinal bleed) SNOMED Code(s): 33667577 Code(s): K92.2 - GASTROINTESTINAL HEMORRHAGE, UNSPECIFIED Current Visit: Yes Qualifiers: GI bleed type/associated pathology: unspecified gastrointestinal hemorrhage type Qualified Code(s): K92.2 - Gastrointestinal hemorrhage, unspecified Problem List Initiated/Reviewed/Updated: Yes Plan: 61 yo M with GI bleeding and anemia 2/2 blood loss Patient has not had previous EGD/colonoscopy. Will proceed with EGD and colonoscopy tomorrow afternoon. Risks and benefits reviewed including pain, bleeding, perforation or damage to other intra-abdominal organs, need for additional procedures. He found these risks acceptable and agreed to proceed. Consent obtained. Discussed recommendations with Dr. Mohamud at time of consult. Split prep Harvey schmitz. CLD today and until 8AM on 12/14. Continue IV BID Protonix.
[2016-12-13] MEDS: amLODIPine 10 MG Tab PO SCH (11:06)
[2016-12-13] MEDS: Hydrochlorothiazide 25 MG Tab PO SCH (11:06)
[2016-12-13] MEDS: Lisinopril 20 MG Tab PO SCH (11:06)
--- NOTE | 2016-12-13 11:58 | CR ---
Chest: Portable view of the chest was obtained. Comparison: No previous study. Heart size is normal. Tortuous thoracic aorta is seen. Lungs are clear with no acute infiltrates. Bony structures are grossly intact. Impression: 1. Nothing acute is identified on portable chest x-ray. Diagnostic code #2
[2016-12-13] MEDS ORDERED: Iron Sucrose Complex 500 MG in Sodium Chloride 0.9% 250 ML IV ONE (12:03)
[2016-12-13] MEDS ORDERED: Acetaminophen 325 MG Tab PO ONE (12:04)
[2016-12-13] MEDS ORDERED: diphenhydrAMINE 25 MG Cap PO ONE (12:04)
[2016-12-13] MEDS ORDERED: Polyethylene Glycol/Electrolytes 4,000 ML Bottle PO SCH (18:00)
[2016-12-13] MEDS ORDERED: Sodium Chloride 0.9% 250 ML IV SCH (18:30)
[2016-12-13] MEDS ORDERED: Sodium Chloride 0.9% 100 ML ONE (19:36)
[2016-12-13] MEDS ORDERED: Magnesium Oxide 400 MG Tab PO ONE ×2 (20:22→21:00)
[2016-12-13] MEDS ORDERED: Potassium Chloride 20 MEQ Tab.ER PO ONE (21:00)
--- NOTE | 2016-12-14 07:56 | PCM.PREANE ---
Preanesthetic Assessment - Anesthesia/Transfusion/Family Hx Anesthesia History: Prior Anesthesia Without Reaction Family History of Anesthesia Reaction: No Transfusion History: Prior Transfusion Without Reaction - Review of Systems General: No Symptoms Pulmonary: No Symptoms Cardiovascular: No Symptoms Gastrointestinal: Nausea Neurological: Numbness, Tingling (on and off in fingers) Other: Reports: Easy Bleeding - Physical Assessment NPO Status Date: 12/14/16 NPO Status Time: 00:00 Pulse: 106 O2 Sat by Pulse Oximetry: 97 Respiratory Rate: 16 Blood Pressure: 143/96 Temperature: 36.6 C Vital Signs: Last Vital Signs Temp 36.6 C 12/14/16 03:14 Pulse 106 H 12/14/16 03:14 Resp 16 12/14/16 03:14 BP 143/96 H 12/14/16 03:14 Pulse Ox 97 12/14/16 03:14 Height: 1.83 m Weight: 91.217 kg ASA Class: 2 Mental Status: Alert & Oriented x3 Airway Class: Mallampati = 1 Dentition: Reports: Normal Dentition Thyro-Mental Finger Breadths: 3 Mouth Opening Finger Breadths: 3 ROM/Head Extension: Full Lungs: Clear to auscultation, Normal respiratory effort Cardiovascular: Regular Rate, Regular Rhythm - Lab Values: Laboratory Last Values WBC 8.18 K/mm3 (4.23-9.07) 12/14/16 05:04 RBC 3.05 M/mm3 (4.63-6.08) L 12/14/16 05:04 Hgb 8.7 gm/L (13.7-17.5) L 12/14/16 05:04 Hct 26.6 % (40.1-51.0) L 12/14/16 05:04 MCV 87.2 fl (79.0-92.2) 12/14/16 05:04 MCH 28.5 pg (25.7-32.2) 12/14/16 05:04 MCHC 32.7 g/dl (32.2-35.5) 12/14/16 05:04 RDW Std Deviation 46.7 fL (35.1-43.9) H 12/14/16 05:04 Plt Count 164 K/mm3 (163-337) 12/14/16 05:04 MPV 10.4 fl (9.4-12.3) 12/14/16 05:04 Neut % (Auto) 77.1 % (34.0-67.9) H 12/14/16 05:04 Lymph % (Auto) 13.1 % (21.8-53.1) L 12/14/16 05:04 [place] % (Auto) 5.4 % (5.3-12.2) 12/14/16 05:04 Eos % (Auto) 3.8 (0.8-7.0) 12/14/16 05:04 Baso % (Auto) 0.4 % (0.1-1.2) 12/14/16 05:04 Neut # (Auto) 6.31 K/mm3 (1.78-5.38) H 12/14/16 05:04 Lymph # (Auto) 1.07 K/mm3 (1.32-3.57) L 12/14/16 05:04 [place] # (Auto) 0.44 K/mm3 (0.30-0.82) 12/14/16 05:04 Eos # (Auto) 0.31 K/mm3 (0.04-0.54) 12/14/16 05:04 Baso # (Auto) 0.03 K/mm3 (0.01-0.08) 12/14/16 05:04 Manual Slide Review Abnormal smear 12/13/16 06:09 PT 10.3 SECONDS (8.0-13.0) 12/12/16 15:48 INR 0.95 12/12/16 15:48 APTT 21 SECONDS (22-36) L 12/12/16 15:48 Sodium 142 mEq/L (136-145) 12/14/16 05:04 Potassium 4.0 mEq/L (3.5-5.1) 12/14/16 05:04 Chloride 110 mEq/L (98-107) H 12/14/16 05:04 Carbon Dioxide 27 mEq/L (21-32) 12/14/16 05:04 Anion Gap 9.0 (5-15) 12/14/16 05:04 BUN 15 mg/dL (7-18) 12/14/16 05:04 Creatinine 1.2 mg/dL (0.7-1.3) 12/14/16 05:04 Est Cr Clr Drug Dosing 70.95 mL/min 12/14/16 05:04 Estimated GFR (MDRD) > 60 mL/min (>60) 12/14/16 05:04 BUN/Creatinine Ratio 12.5 (14-18) L 12/14/16 05:04 Glucose 106 mg/dL (80-115) 12/14/16 05:04 Calcium 8.3 mg/dL (8.5-10.1) L 12/14/16 05:04 Magnesium 2.1 mg/dl (1.8-2.4) 12/14/16 05:04 Total Bilirubin 0.2 mg/dL (0.2-1.0) 12/12/16 15:48 AST 8 U/L (15-37) L 12/12/16 15:48 ALT 11 U/L (16-63) L 12/12/16 15:48 Alkaline Phosphatase 43 U/L (46-116) L 12/12/16 15:48 Troponin I 0.020 ng/mL (0.00-0.056) 12/12/16 15:48 C-Reactive Protein < 0.2 mg/dL (<1.0) 12/13/16 06:09 Total Protein 5.0 g/dl (6.4-8.2) L 12/12/16 15:48 Albumin 2.5 g/dl (3.4-5.0) L 12/12/16 15:48 Globulin 2.5 gm/dL 12/12/16 15:48 Albumin/Globulin Ratio 1.0 (1-2) 12/12/16 15:48 Lipase 138 U/L (73-393) 12/12/16 15:48 Urine Color Light yellow (Yellow) 12/12/16 16:08 Urine Appearance Clear (Clear) 12/12/16 16:08 Urine pH 5.5 (5.0-8.0) 12/12/16 16:08 Ur Specific [place] 1.015 (1.005-1.030) 12/12/16 16:08 Urine Protein Negative (Negative) 12/12/16 16:08 Urine Glucose (UA) Negative (Negative) 12/12/16 16:08 Urine Ketones Negative (Negative) 12/12/16 16:08 Urine Occult Blood Negative (Negative) 12/12/16 16:08 Urine Nitrite Negative (Negative) 12/12/16 16:08 Urine Bilirubin Negative (Negative) 12/12/16 16:08 Urine Urobilinogen 0.2 (0.2-1.0) 12/12/16 16:08 Ur Leukocyte Esterase Negative (Negative) 12/12/16 16:08 Urine RBC 0-5 /hpf (0-5) 12/12/16 16:08 Urine WBC 0-5 /hpf (0-5) 12/12/16 16:08 Ur Epithelial Cells 0-5 /hpf (0-5) 12/12/16 16:08 Urine Bacteria Rare /hpf (FEW) 12/12/16 16:08 Urine Mucus Not seen /hpf (FEW) 12/12/16 16:08 Blood Type A POSITIVE 12/12/16 15:48 Gel Antibody Screen Negative 12/12/16 15:48 Crossmatch See Detail 12/12/16 15:48 - Allergies Allergies/Adverse Reactions: Allergies Allergy/AdvReac Type Severity Reaction Status Date / Time No Known Allergies Allergy Verified 12/12/16 14:48 - Blood Blood Available: Yes Product(s) Available: PRBC - Anesthesia Plan Pre-Op Medication Ordered: None - Acknowledgements Anesthesia Type Planned: MAC Pt an Appropriate Candidate for the Planned Anesthesia: Yes Alternatives and Risks of Anesthesia Discussed w Pt/Guardian: Yes Pt/Guardian Understands and Agrees with Anesthesia Plan: Yes PreAnesthesia Questionnaire Cardiovascular History: Reports: Hypertension - Infectious Disease History Infectious Disease History: Reports: Rheumatic Fever - Past Surgical History GI Surgical History: Reports: Hernia, abdominal, Hernia, inguinal Female Surgical History: Reports: Cystoscopy - SUBSTANCE USE Smoking Status *Q: Never Smoker Tobacco Use Within Last Twelve Months: No Second Hand Smoke Exposure: No Days Per Week of Alcohol Use: 0 Number of Drinks Per Day: 0 Total Drinks Per Week: 0 Recreational Drug Use History: No - HOME MEDS Home Medications: Home Meds Hydrochlorothiazide 50 mg PO DAILY 12/12/16 [History] Lisinopril 20 mg PO DAILY 12/12/16 [History] amLODIPine [Norvasc] 10 mg PO DAILY 12/12/16 [History] - CURRENT (IN HOUSE) MEDS Current Meds: Current Medications Acetaminophen (Tylenol) 650 mg PO Q4H PRN PRN Reason: Pain (Mild 1-3)/fever Hydrocodone Bitart/Acetaminophen ([place] 325-5 Mg) 1 tab PO Q4H PRN PRN Reason: Pain (moderate 4-6) Albuterol (Proventil Neb Soln) 2.5 mg NEB Q2H PRN PRN Reason: Shortness Of Breath/wheezing Amlodipine Besylate (Norvasc) 10 mg PO DAILY [facility] Last Admin: 12/13/16 11:06 Dose: Not Given Hydrochlorothiazide (Hydrochlorothiazide) 50 mg PO DAILY [facility] Last Admin: 12/13/16 11:06 Dose: Not Given Hydromorphone HCl (Dilaudid) 0.25 mg IVPUSH Q2H PRN PRN Reason: Pain (severe 7-10) Lisinopril (Prinivil) 20 mg PO DAILY [facility] Last Admin: 12/13/16 11:06 Dose: Not Given Magnesium Sulfate (Pharmacy To Dose - Magnesium Replacement) 0 dose .XX ASDIRECTED PRN PRN Reason: rx dose Ondansetron HCl (Zofran) 4 mg IV Q6H PRN PRN Reason: Nausea/Vomiting Pantoprazole Sodium (Protonix Iv) 40 mg IV Q12HR [facility] Last Admin: 12/13/16 22:21 Dose: Not Given Polyethylene Glycol/Electrolytes (Golytely) 4,000 ml PO ONETIME [facility] Stop: 12/14/16 08:00 Last Admin: 12/13/16 17:52 Dose: 4,000 ml Potassium Chloride (Pharmacy To Dose - Potassium Replacement) 1 dose .XX ASDIRECTED PRN PRN Reason: rx dose Sodium Chloride (Saline Flush) 10 ml FLUSH ASDIRECTED PRN PRN Reason: Keep Vein Open Last Admin: 12/12/16 15:37 Dose: 10 ml Temazepam (Restoril) 30 mg PO BEDTIME PRN PRN Reason: Sleep Discontinued Medications Acetaminophen (Tylenol) 650 mg PO NOW ONE Stop: 12/13/16 12:05 Last Admin: 12/13/16 13:24 Dose: 650 mg Diphenhydramine HCl (Benadryl) 25 mg PO ONETIME ONE Stop: 12/13/16 12:05 Last Admin: 12/13/16 13:23 Dose: 25 mg Sodium Chloride (Normal Saline) 1,000 mls @ 250 mls/hr IV ONETIME ONE Stop: 12/12/16 19:11 Last Admin: 12/12/16 15:38 Dose: 250 mls/hr Dextrose/Sodium Chloride (Dextrose 5%-1/2 Ns) 1,000 mls @ 150 mls/hr IV ASDIRECTED [facility] Last Admin: 12/13/16 17:57 Dose: 150 mls/hr Iron Sucrose 500 mg/ Sodium (Chloride) 275 mls @ 75 mls/hr IV ONETIME ONE Stop: 12/13/16 15:42 Last Admin: 12/13/16 13:24 Dose: 75 mls/hr Sodium Chloride (Normal Saline) 250 mls @ 250 mls/hr IV ASDIRECTED [facility] Sodium Chloride (Normal Saline) Confirm Administered Dose 100 mls @ as directed .ROUTE .STK-MED ONE Stop: 12/13/16 19:37 Last Admin: 12/13/16 20:15 Dose: Not Given Magnesium Oxide (Magnesium Oxide) 800 mg PO ONETIME ONE Stop: 12/13/16 21:01 Last Admin: 12/13/16 20:14 Dose: 400 mg Magnesium Oxide (Magnesium Oxide) 400 mg PO ONETIME ONE Stop: 12/13/16 20:23 Last Admin: 12/13/16 21:00 Dose: 400 mg Pantoprazole Sodium (Protonix Iv) 40 mg IVPUSH ONETIME ONE Stop: 12/12/16 15:14 Last Admin: 12/12/16 15:33 Dose: 40 mg Potassium Chloride (Klor-Con M20) 60 meq PO ONETIME ONE Stop: 12/13/16 21:01 Last Admin: 12/13/16 20:13 Dose: 60 meq
[2016-12-14] MEDS: amLODIPine 10 MG Tab PO SCH (10:03)
[2016-12-14] MEDS: Hydrochlorothiazide 25 MG Tab PO SCH (10:03)
[2016-12-14] MEDS: Lisinopril 20 MG Tab PO SCH (10:04)
[2016-12-14] MEDS: Pantoprazole 40 MG Vial IV SCH ×2 (10:12→21:45)
--- NOTE | 2016-12-14 10:54 | PCM.SN ---
- Free Text/Narrative Note: Patient is doing relatively well. No overnight or acute issues. His Hgb is stable at 8.7. Vitals remain stable. He is scheduled for endoscopy sometimes this afternoon.
[2016-12-14] MEDS ORDERED: HYDROmorphone 0.5 MG/0.5 ML Syringe IVPUSH PRN (10:56)
[2016-12-14] MEDS ORDERED: Temazepam 30 MG Cap PO PRN (10:56)
--- NOTE | 2016-12-14 17:00 | PCM.CONSN ---
- General Info Date of Service: 12/14/16 - Review of Systems Systems Review Comment:: Patient completed prep without difficulty. Denies pain. Melena with prep, no hematochezia. Feels okay. - Patient Data Vitals - most recent: Last Vital Signs Temp 97.9 F 12/14/16 16:14 Pulse 80 12/14/16 16:14 Resp 16 12/14/16 16:14 BP 123/82 12/14/16 16:14 Pulse Ox 99 12/14/16 16:14 Weight - most recent: 201 lb 1.6 oz I&O - last 24 hours: Intake & Output 12/14/16 12/14/16 12/14/16 06:59 14:59 22:59 Intake Total 2850 Output Total 800 Balance 2850 -800 Lab Results last 24 hrs: Laboratory Results - last 24 hr 12/13/16 12/14/16 12/14/16 Range/Units 17:47 05:04 05:04 WBC 8.18 (4.23-9.07) K/mm3 RBC 3.05 L (4.63-6.08) M/mm3 Hgb 7.0 L* 8.7 L (13.7-17.5) gm/L Hct 21.5 L 26.6 L (40.1-51.0) % MCV 87.2 (79.0-92.2) fl MCH 28.5 (25.7-32.2) pg MCHC 32.7 (32.2-35.5) g/dl RDW Std Deviation 46.7 H (35.1-43.9) fL Plt Count 164 (163-337) K/mm3 MPV 10.4 (9.4-12.3) fl Neut % (Auto) 77.1 H (34.0-67.9) % Lymph % (Auto) 13.1 L (21.8-53.1) % [place] % (Auto) 5.4 (5.3-12.2) % Eos % (Auto) 3.8 (0.8-7.0) Baso % (Auto) 0.4 (0.1-1.2) % Neut # (Auto) 6.31 H (1.78-5.38) K/mm3 Lymph # (Auto) 1.07 L (1.32-3.57) K/mm3 [place] # (Auto) 0.44 (0.30-0.82) K/mm3 Eos # (Auto) 0.31 (0.04-0.54) K/mm3 Baso # (Auto) 0.03 (0.01-0.08) K/mm3 Sodium 142 (136-145) mEq/L Potassium 4.0 (3.5-5.1) mEq/L Chloride 110 H (98-107) mEq/L Carbon Dioxide 27 (21-32) mEq/L Anion Gap 9.0 (5-15) BUN 15 (7-18) mg/dL Creatinine 1.2 (0.7-1.3) mg/dL Est Cr Clr Drug Dosing 70.95 mL/min Estimated GFR (MDRD) > 60 (>60) mL/min BUN/Creatinine Ratio 12.5 L (14-18) Glucose 106 (80-115) mg/dL Calcium 8.3 L (8.5-10.1) mg/dL Magnesium 2.1 (1.8-2.4) mg/dl Med Orders - Current: Current Medications Acetaminophen (Tylenol) 650 mg PO Q4H PRN PRN Reason: Pain (Mild 1-3)/fever Hydrocodone Bitart/Acetaminophen ([place] 325-5 Mg) 1 tab PO Q4H PRN PRN Reason: Pain (moderate 4-6) Albuterol (Proventil Neb Soln) 2.5 mg NEB Q2H PRN PRN Reason: Shortness Of Breath/wheezing Amlodipine Besylate (Norvasc) 10 mg PO DAILY [facility] Last Admin: 12/14/16 10:03 Dose: Not Given Hydrochlorothiazide (Hydrochlorothiazide) 50 mg PO DAILY [facility] Last Admin: 12/14/16 10:03 Dose: Not Given Hydromorphone HCl (Dilaudid) 0.25 mg IVPUSH Q2H PRN PRN Reason: Pain (severe 7-10) Lisinopril (Prinivil) 20 mg PO DAILY [facility] Last Admin: 12/14/16 10:04 Dose: Not Given Magnesium Sulfate (Pharmacy To Dose - Magnesium Replacement) 0 dose .XX ASDIRECTED PRN PRN Reason: rx dose Ondansetron HCl (Zofran) 4 mg IV Q6H PRN PRN Reason: Nausea/Vomiting Pantoprazole Sodium (Protonix Iv) 40 mg IV Q12HR [facility] Last Admin: 12/14/16 10:12 Dose: 40 mg Potassium Chloride (Pharmacy To Dose - Potassium Replacement) 1 dose .XX ASDIRECTED PRN PRN Reason: rx dose Sodium Chloride (Saline Flush) 10 ml FLUSH ASDIRECTED PRN PRN Reason: Keep Vein Open Last Admin: 12/12/16 15:37 Dose: 10 ml Temazepam (Restoril) 30 mg PO BEDTIME PRN PRN Reason: Sleep Discontinued Medications Acetaminophen (Tylenol) 650 mg PO NOW ONE Stop: 12/13/16 12:05 Last Admin: 12/13/16 13:24 Dose: 650 mg Diphenhydramine HCl (Benadryl) 25 mg PO ONETIME ONE Stop: 12/13/16 12:05 Last Admin: 12/13/16 13:23 Dose: 25 mg Fentanyl (Sublimaze) Confirm Administered Dose 100 mcg .ROUTE .STK-MED ONE Stop: 12/14/16 17:04 Hydromorphone HCl (Dilaudid) 0.25 mg IVPUSH Q2H PRN PRN Reason: Pain (severe 7-10) Sodium Chloride (Normal Saline) 1,000 mls @ 250 mls/hr IV ONETIME ONE Stop: 12/12/16 19:11 Last Admin: 12/12/16 15:38 Dose: 250 mls/hr Dextrose/Sodium Chloride (Dextrose 5%-1/2 Ns) 1,000 mls @ 150 mls/hr IV ASDIRECTED [facility] Last Admin: 12/13/16 17:57 Dose: 150 mls/hr Iron Sucrose 500 mg/ Sodium (Chloride) 275 mls @ 75 mls/hr IV ONETIME ONE Stop: 12/13/16 15:42 Last Admin: 12/13/16 13:24 Dose: 75 mls/hr Sodium Chloride (Normal Saline) 250 mls @ 250 mls/hr IV ASDIRECTED [facility] Sodium Chloride (Normal Saline) Confirm Administered Dose 100 mls @ as directed .ROUTE .STK-MED ONE Stop: 12/13/16 19:37 Last Admin: 12/13/16 20:15 Dose: Not Given Lidocaine HCl (Xylocaine-Mpf 1%) Confirm Administered Dose 4 mls @ as directed .ROUTE .STK-MED ONE Stop: 12/14/16 17:06 Magnesium Oxide (Magnesium Oxide) 800 mg PO ONETIME ONE Stop: 12/13/16 21:01 Last Admin: 12/13/16 20:14 Dose: 400 mg Magnesium Oxide (Magnesium Oxide) 400 mg PO ONETIME ONE Stop: 12/13/16 20:23 Last Admin: 12/13/16 21:00 Dose: 400 mg Midazolam HCl ([place] 1 Mg/Ml) Confirm Administered Dose 2 mg .ROUTE .STK-MED ONE Stop: 12/14/16 17:04 Pantoprazole Sodium (Protonix Iv) 40 mg IVPUSH ONETIME ONE Stop: 12/12/16 15:14 Last Admin: 12/12/16 15:33 Dose: 40 mg Polyethylene Glycol/Electrolytes (Golytely) 4,000 ml PO ONETIME [facility] Stop: 12/14/16 08:00 Last Admin: 12/13/16 17:52 Dose: 4,000 ml Potassium Chloride (Klor-Con M20) 60 meq PO ONETIME ONE Stop: 12/13/16 21:01 Last Admin: 12/13/16 20:13 Dose: 60 meq Propofol (Diprivan 20 Ml) Confirm Administered Dose 200 mg .ROUTE .STK-MED ONE Stop: 12/14/16 17:04 Temazepam (Restoril) 30 mg PO BEDTIME PRN PRN Reason: Sleep - Exam Quality Assessment: No: supplemental oxygen General: alert, oriented, cooperative, no acute distress HEENT: No: Scleral icterus Lungs: Clear to auscultation, Normal respiratory effort Cardiovascular: Regular Rate, Regular Rhythm Abdomen: soft, no tenderness, no distension. No: rigidity, rebound, guarding, tenderness Extremities: no edema, no cyanosis Skin: warm, dry, intact Neurological: no new focal deficit Psy/Mental Status: alert, normal affect, normal mood Consult PN Assessment/Plan (1) GI (gastrointestinal bleed) SNOMED Code(s): 88235112 Code(s): K92.2 - GASTROINTESTINAL HEMORRHAGE, UNSPECIFIED Current Visit: Yes Qualifiers: GI bleed type/associated pathology: unspecified gastrointestinal hemorrhage type Qualified Code(s): K92.2 - Gastrointestinal hemorrhage, unspecified Problem List Initiated/Reviewed/Updated: Yes My Orders last 24 hours: My Active Orders 12/13/16 Dinner Clear Liquid Diet [DIET] 12/14/16 15:30 Schedule Procedure [COMM] Timed Plan: 61 yo M with GI bleeding and anemia 2/2 blood loss Proceed with EGD/colonoscopy as planned.
--- NOTE | 2016-12-14 17:02 | PCM.OPNOTE ---
- General Post-Op/Procedure Note Date of Surgery/Procedure: 12/14/16 Operative Procedure(s): 1. Diagnostic EGD with cold forceps biopsy. 2. 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 Small bowel biopsy 2. Antral biopsy 3. Distal esophageal biopsy EBL in mLs: 1 Complications: None Condition: Good Free Text/Narrative:: FLUIDS: 500 mL crystalloid. INDICATION FOR PROCEDURE: The patient is a 61-year-old man who was referred to me by Dr. Bakari Mohamud for evaluation for GI bleeding. Performing a colonoscopy and EGD and the associated risks of the procedures had been discussed with the patient. The patient found these risks acceptable and agreed to proceed. DESCRIPTION OF PROCEDURE: The patient was taken to the operating room and placed in the left lateral decubitus position. After induction of adequate sedation, a bite block was placed. A standard Olympus gastroscope was inserted into the oropharynx and guided down the esophagus without difficulty. The gastroesophageal junction was appreciated at 39 cm from the teeth. There was no evidence of stricture or esophageal ulcerations. The scope was advanced into the stomach, and there was no obvious abnormality. The scope was passed into the proximal jejunum and the duodenum which showed a cratered ulcer at the junction of D1 and D2. There was no active bleeding and no clot. There was surrounding inflammatory change. The proximal jejunum was grossly normal in appearance. Multiple cold forceps biopsies were obtained of the proximal jejunum and duodenum adjacent to the ulcer. The scope was withdrawn into the antrum, and additional cold forceps biopsies were obtained. The remainder of the gastric body was examined, and there were no other findings. The scope was retroflexed, and there was a small hiatal hernia. The scope was straightened and withdrawn to the GE junction. Additional cold forceps biopsies were obtained of the distal esophagus. There were two small tongues of Vale's appearing mucosa, neither longer than 1-2 cm. The scope was withdrawn through the remainder of the esophagus and no further abnormalities were noted. The posterior oropharynx was grossly normal in appearance. The scope was fully withdrawn and attention was then turned to the colonoscopy. A digital rectal exam was performed which was unremarkable. The prostate was not enlarged and was non-nodular. An adult Olympus colonoscope was inserted into the rectum and guided under direct visualization to the appendiceal orifice and ileocecal valve. Counter pressure was utilized and the patient was placed supine. The scope was then slowly withdrawn through the colon. The quality of the prep was good. There was no evidence of angiodysplasias, diverticulum or mass lesions. The scope was withdrawn into the rectum and retroflexed. There were Grade 1 internal hemorrhoids. The scope was straightened, the colon was desufflated, and the scope was withdrawn. The patient was awakened from sedation and transferred to the recovery room in stable condition having tolerated the procedure well. POSTOPERATIVE PLAN: I discussed with Dr. Mohamud my intraoperative findings and recommendations. He is to continue BID Protonix and start Carafate 1gm four times daily. He should follow up in about 1 week and should have a repeat endoscopy in 3 months to ensure healing. He is to follow a GERD\gastritis diet. Repeat colonoscopy can be performed in 10 years unless a change in bowel habits. The patient is to call with any worsening of symptoms or questions prior to the appointment.
[2016-12-14] MEDS ORDERED: Propofol 200 MG/20 ML SDV ONE ×2 (17:03→18:00)
[2016-12-14] MEDS ORDERED: fentaNYL 100 MCG/2 ML SDV ONE (17:03)
[2016-12-14] MEDS ORDERED: Midazolam 1 MG/ML 2 ML SDV ONE (17:03)
[2016-12-14] MEDS ORDERED: Lidocaine 1% 4 ML ONE (17:05)
[2016-12-14] MEDS ORDERED: ePHEDrine/Normal Saline 25 MG/5 ML Syringe ONE (17:57)
--- NOTE | 2016-12-14 18:01 | PCM48HPAN ---
Post Anesthesia Note - EVALUATION WITHIN 48HRS OF ANESTHETIC Vital Signs in Normal Range: Yes Patient Participated in Evaluation: Yes Respiratory Function Stable: Yes Airway Patent: Yes Cardiovascular Function Stable: Yes Hydration Status Stable: Yes Pain Control Satisfactory: Yes Nausea and Vomiting Control Satisfactory: Yes Mental Status Recovered: Yes
--- NOTE | 2016-12-14 19:19 | PCM.PN ---
- General Info Date of Service: 12/14/16 Admission Dx/Problem (Free Text): GI Bleed Subjective Update: Follow up Functional Status: Reports: pain controlled, ambulating, urinating. Denies: new symptoms - Review of Systems General: Denies: Fever, Weakness, Fatigue, Malaise HEENT: Reports: no symptoms Pulmonary: Reports: no symptoms Cardiovascular: Denies: Chest Pain Gastrointestinal: Denies: Abdominal pain, Nausea, Vomiting Genitourinary: Reports: no symptoms Musculoskeletal: Reports: no symptoms Skin: Reports: no symptoms Neurological: Reports: No Symptoms Psychiatric: Reports: no symptoms Systems Review Comment:: No overnight or acute issues. He is doing relatively well after the procedure. He was found to have a large doudenal ulcer. No procedural complications reported. - Patient Data Vitals - most recent: Last Vital Signs Temp 36.6 C 12/14/16 16:14 Pulse 80 12/14/16 16:14 Resp 16 12/14/16 16:14 BP 123/82 12/14/16 16:14 Pulse Ox 99 12/14/16 16:14 Weight - most recent: 91.217 kg I&O - last 24 hours: Intake & Output 12/14/16 12/14/16 12/14/16 06:59 14:59 22:59 Intake Total 2850 Output Total 800 Balance 2850 -800 Lab Results last 24 hrs: Laboratory Results - last 24 hr 12/14/16 12/14/16 Range/Units 05:04 05:04 WBC 8.18 (4.23-9.07) K/mm3 RBC 3.05 L (4.63-6.08) M/mm3 Hgb 8.7 L (13.7-17.5) gm/L Hct 26.6 L (40.1-51.0) % MCV 87.2 (79.0-92.2) fl MCH 28.5 (25.7-32.2) pg MCHC 32.7 (32.2-35.5) g/dl RDW Std Deviation 46.7 H (35.1-43.9) fL Plt Count 164 (163-337) K/mm3 MPV 10.4 (9.4-12.3) fl Neut % (Auto) 77.1 H (34.0-67.9) % Lymph % (Auto) 13.1 L (21.8-53.1) % [place] % (Auto) 5.4 (5.3-12.2) % Eos % (Auto) 3.8 (0.8-7.0) Baso % (Auto) 0.4 (0.1-1.2) % Neut # (Auto) 6.31 H (1.78-5.38) K/mm3 Lymph # (Auto) 1.07 L (1.32-3.57) K/mm3 [place] # (Auto) 0.44 (0.30-0.82) K/mm3 Eos # (Auto) 0.31 (0.04-0.54) K/mm3 Baso # (Auto) 0.03 (0.01-0.08) K/mm3 Sodium 142 (136-145) mEq/L Potassium 4.0 (3.5-5.1) mEq/L Chloride 110 H (98-107) mEq/L Carbon Dioxide 27 (21-32) mEq/L Anion Gap 9.0 (5-15) BUN 15 (7-18) mg/dL Creatinine 1.2 (0.7-1.3) mg/dL Est Cr Clr Drug Dosing 70.95 mL/min Estimated GFR (MDRD) > 60 (>60) mL/min BUN/Creatinine Ratio 12.5 L (14-18) Glucose 106 (80-115) mg/dL Calcium 8.3 L (8.5-10.1) mg/dL Magnesium 2.1 (1.8-2.4) mg/dl Med Orders - Current: Current Medications Acetaminophen (Tylenol) 650 mg PO Q4H PRN PRN Reason: Pain (Mild 1-3)/fever Hydrocodone Bitart/Acetaminophen ([place] 325-5 Mg) 1 tab PO Q4H PRN PRN Reason: Pain (moderate 4-6) Albuterol (Proventil Neb Soln) 2.5 mg NEB Q2H PRN PRN Reason: Shortness Of Breath/wheezing Amlodipine Besylate (Norvasc) 10 mg PO DAILY [facility] Last Admin: 12/14/16 10:03 Dose: Not Given Hydrochlorothiazide (Hydrochlorothiazide) 50 mg PO DAILY [facility] Last Admin: 12/14/16 10:03 Dose: Not Given Hydromorphone HCl (Dilaudid) 0.25 mg IVPUSH Q2H PRN PRN Reason: Pain (severe 7-10) Lisinopril (Prinivil) 20 mg PO DAILY [facility] Last Admin: 12/14/16 10:04 Dose: Not Given Magnesium Sulfate (Pharmacy To Dose - Magnesium Replacement) 0 dose .XX ASDIRECTED PRN PRN Reason: rx dose Ondansetron HCl (Zofran) 4 mg IV Q6H PRN PRN Reason: Nausea/Vomiting Pantoprazole Sodium (Protonix Iv) 40 mg IV Q12HR [facility] Last Admin: 12/14/16 10:12 Dose: 40 mg Potassium Chloride (Pharmacy To Dose - Potassium Replacement) 1 dose .XX ASDIRECTED PRN PRN Reason: rx dose Sodium Chloride (Saline Flush) 10 ml FLUSH ASDIRECTED PRN PRN Reason: Keep Vein Open Last Admin: 12/12/16 15:37 Dose: 10 ml Sucralfate (Carafate) 1 gm PO QIDACANDBED [facility] Temazepam (Restoril) 30 mg PO BEDTIME PRN PRN Reason: Sleep Discontinued Medications Acetaminophen (Tylenol) 650 mg PO NOW ONE Stop: 12/13/16 12:05 Last Admin: 12/13/16 13:24 Dose: 650 mg Diphenhydramine HCl (Benadryl) 25 mg PO ONETIME ONE Stop: 12/13/16 12:05 Last Admin: 12/13/16 13:23 Dose: 25 mg Ephedrine Sulfate (Ephedrine In Ns) Confirm Administered Dose 25 mg .ROUTE .STK- MED ONE Stop: 12/14/16 17:58 Fentanyl (Sublimaze) Confirm Administered Dose 100 mcg .ROUTE .STK-MED ONE Stop: 12/14/16 17:04 Hydromorphone HCl (Dilaudid) 0.25 mg IVPUSH Q2H PRN PRN Reason: Pain (severe 7-10) Sodium Chloride (Normal Saline) 1,000 mls @ 250 mls/hr IV ONETIME ONE Stop: 12/12/16 19:11 Last Admin: 12/12/16 15:38 Dose: 250 mls/hr Dextrose/Sodium Chloride (Dextrose 5%-1/2 Ns) 1,000 mls @ 150 mls/hr IV ASDIRECTED [facility] Last Admin: 12/13/16 17:57 Dose: 150 mls/hr Iron Sucrose 500 mg/ Sodium (Chloride) 275 mls @ 75 mls/hr IV ONETIME ONE Stop: 12/13/16 15:42 Last Admin: 12/13/16 13:24 Dose: 75 mls/hr Sodium Chloride (Normal Saline) 250 mls @ 250 mls/hr IV ASDIRECTED ERMIAS Sodium Chloride (Normal Saline) Confirm Administered Dose 100 mls @ as directed .ROUTE .STK-MED ONE Stop: 12/13/16 19:37 Last Admin: 12/13/16 20:15 Dose: Not Given Lidocaine HCl (Xylocaine-Mpf 1%) Confirm Administered Dose 4 mls @ as directed .ROUTE .STK-MED ONE Stop: 12/14/16 17:06 Magnesium Oxide (Magnesium Oxide) 800 mg PO ONETIME ONE Stop: 12/13/16 21:01 Last Admin: 12/13/16 20:14 Dose: 400 mg Magnesium Oxide (Magnesium Oxide) 400 mg PO ONETIME ONE Stop: 12/13/16 20:23 Last Admin: 12/13/16 21:00 Dose: 400 mg Midazolam HCl (Versed 1 Mg/Ml) Confirm Administered Dose 2 mg .ROUTE .STK-MED ONE Stop: 12/14/16 17:04 Pantoprazole Sodium (Protonix Iv) 40 mg IVPUSH ONETIME ONE Stop: 12/12/16 15:14 Last Admin: 12/12/16 15:33 Dose: 40 mg Polyethylene Glycol/Electrolytes (Golytely) 4,000 ml PO ONETIME ERMIAS Stop: 12/14/16 08:00 Last Admin: 12/13/16 17:52 Dose: 4,000 ml Potassium Chloride (Klor-Con M20) 60 meq PO ONETIME ONE Stop: 12/13/16 21:01 Last Admin: 12/13/16 20:13 Dose: 60 meq Propofol (Diprivan 20 Ml) Confirm Administered Dose 200 mg .ROUTE .STK-MED ONE Stop: 12/14/16 17:04 Propofol (Diprivan 20 Ml) Confirm Administered Dose 200 mg .ROUTE .STK-MED ONE Stop: 12/14/16 18:01 Temazepam (Restoril) 30 mg PO BEDTIME PRN PRN Reason: Sleep - Exam General: alert, oriented, cooperative, no acute distress HEENT: Pupils equal, Pupils reactive, EOMI, Mucous membr. moist/pink Neck: supple, trachea midline, no JVD Lungs: Clear to auscultation, Normal respiratory effort Cardiovascular: Regular Rate, Regular Rhythm Abdomen: bowel sounds present, soft, no tenderness, no distension (Male) Exam: Deferred Back Exam: normal inspection, decreased range of motion Extremities: no edema, normal pulses, no tenderness/swelling, no clubbing, no cyanosis, no calf tenderness Skin: warm, dry, intact Neurological: no new focal deficit Psy/Mental Status: alert, normal affect, normal mood - Problem List Review Problem List Initiated/Reviewed/Updated: Yes - My Orders Last 24 Hours: My Active Orders 12/14/16 10:56 HYDROmorphone [Dilaudid] 0.25 mg IVPUSH Q2H PRN Temazepam [Restoril] 30 mg PO BEDTIME PRN 12/15/16 05:11 BASIC METABOLIC PANEL,BMP [CHEM] AM CBC WITH AUTO DIFF [HEME] AM MAGNESIUM [CHEM] AM - Plan Plan:: Assessment/Plan: Acute: GI Bleed - No previous hx/o GI bled in the past - No hx/o diverticulosis/diverticulitis or hermorrhoids - Recent EGD/Colonoscopy: he has not had this done in the past upon further clarification with patient, instead he had cystoscopy - He is not on any blood thinners: anti-platelets or anticoags - No NSAIDs or ASA use - Does not drinks ETOH - No illicit drug use - No family hx/o GI cancer - Status post 4 units of PRBC transfusion - S/p Endoscopy with large doudenal ulcer PUD S/p EGD - PPI BID - Carafate 1 gram QID Resolved: S/p Orthostatic Hypotension - 2/2 Volume Loss form GI bleed - Volume Resuscitative Measures S/p Loose Bowel - No recent travel outside the country - No unusual food or drink - No hx/o GI or PUD in the past - No recent Abx use - Supportive care S/p Anemia - Now asymptomatic - 2/2 GI Bleed - Hgb is 8.7 status post 4 units of PRBC transfusion plus iron infusion x 1 - No longer orthostasis - No active bleed Chronic: HTN Hx/o Umbilical and Inguinal Hernia S/p Surgery Plan: D/c tomorrow per Dr. Flores Resume diet for this evening Continue current treatment Routine AM Labs No blood thinners DVT prophylaxis: SCDs for now due to active bleed 1 week follow up with Dr. Flores Additional orders as above Code status: 1
[2016-12-14] MEDS: Sucralfate Suspension 1 GM/10 ML Cup PO SCH (21:45)
[2016-12-15] MEDS: Sucralfate Suspension 1 GM/10 ML Cup PO SCH (06:38)
--- NOTE | 2016-12-15 06:51 | PCM.DCSUM1 ---
Discharge Summary - Hospital Course Free Text/Narrative:: This is a 61 yo white male with past medical hx/o HTN who comes in with 1 week hx/o of black tarry stools associated with dizziness, lightheadedness, weakness , shortness of breath and a few episode of near syncope. Patient reports that he had stomach pain associated with nausea and vomiting 3 days prior to onset of black tarry stools. Patient carries no hx/o constipation but today he noticed some bright red blood on the toilet and his stool is now more loose then usual. Patient admits to having sick contact with his older brother who the had the same symptoms. He does not re-call sharing same food or drinks with him. He does admit however in the the past, he had stomach aches that would get better with milk. Patient carries a hx/o GERD but lately it has not given him any trouble. Currently denies any fever, chills, no chest pain, abdominal pain, nausea or vomiting. Patient denies any previous GI bleed in the past. His most recent endoscopy was 2- years ago without abnormal findings. His initial work up in ED shows a CBC remarkable for WBC of 9.71, Hgb 5, Hct of 15.8, and MCV of 94. His chemistry is remarkable for Cl of 111, BUN of 38, Cr of 1.4, BS of 133, Ca of 98.1, AST of 8, ALT of 11. Alk Phos of 43, Total protein of 5.0, and Albumin of 2.5. His UA is negative for UTI. His CXR shows no acute abnormal findings. Patient will be admitted under the hospitalist services for GI Bleed. His code status is full. Patient received 4 units of PRBC with improvement of hgb into the 8 range; 8.7. Hemodynamically he improved with normalization of b/p and HR, he remained afebrile. Dr. Flores, General Surgeon was consulted who performed EGD and colonoscopy with findings of duodenal ulcer. Patient will be treated with Protonix 40mg BID and Carafate 1gm QID, GERD/gastritis diet. He was tolerating soft diet well. No n/v/d. He will be discharged home today with follow up with Dr. Flores in 1 week for recheck. - Discharge Data Discharge Date: 12/15/16 (admit date 12/12/16) Discharge Disposition: Home, Self-Care 01 Condition: Good - Discharge Diagnosis/Problem(s) (1) Duodenal ulcer SNOMED Code(s): 44134108 ICD Code: K26.9 - DUODENAL ULCER, UNSP ACUTE OR CHRONIC, W/O HEMOR OR PERF Status: Acute Current Visit: Yes (2) GI (gastrointestinal bleed) SNOMED Code(s): 48165363 ICD Code: K92.2 - GASTROINTESTINAL HEMORRHAGE, UNSPECIFIED Status: Acute Priority: High Current Visit: Yes Qualifiers: GI bleed type/associated pathology: duodenal ulcer Qualified Code(s): K26.4 - Chronic or unspecified duodenal ulcer with hemorrhage (3) Low hemoglobin SNOMED Code(s): 296421004 ICD Code: D64.9 - ANEMIA, UNSPECIFIED Status: Resolved Priority: High Current Visit: Yes (4) Orthostatic dizziness SNOMED Code(s): 864553222, 599810236 ICD Code: R42 - DIZZINESS AND GIDDINESS Status: Resolved Priority: High Current Visit: Yes (5) Orthostatic hypotension SNOMED Code(s): 22502897 ICD Code: I95.1 - ORTHOSTATIC HYPOTENSION Status: Resolved Priority: High Current Visit: Yes - Patient Summary/Data Operative Procedure(s) Performed: 1. Diagnostic EGD with cold forceps biopsy. 2. Diagnostic colonoscopy Complications: None Consults: Consultations 12/12/16 17:21 Consult to Case Management [CONS] Routine Consult to Physician [CONS] Routine -- Dr. Flores, General Surgeon Consult to Avionics Mechanic [CONS] Routine OT Evaluation and Treatment [CONS] Routine PT Evaluation and Treatment [CONS] Routine Labs Pending at D/C: None Recommended Follow-up Testing/Procedures: Follow up with Dr. Flores in 1 week for recheck; labs prior- CBC and BMP Establish care with PCP, follow up within 1-2 weeks Planned Operative Procedure(s) after DC: Repeat EGD in [address] Flores Hospital Course: As noted above - Patient Instructions Diet: Usual Diet as Tolerated (Gastritis/GERD diet), Drink 8-10+ Glasses/Day Activity: As Tolerated Driving: May Drive Today Showering/Bathing: May Shower Notify Provider of: Fever, Increased Pain, Swelling and Redness, Nausea and/or Vomiting Other/Special Instructions: - Please take all medications as directed. - Avoid NSAIDs and Alcohol. - Follow up with Dr. Flores in 1 week. - Please call your doctor for any questions or concerns - Discharge Plan Prescriptions/Med Rec: Pantoprazole Sodium [Protonix] 40 mg PO BID #120 suspdr.pkt Sucralfate [Carafate] 1 gm PO QIDACANDBED #120 cup Home Medications: Home Meds Hydrochlorothiazide 50 mg PO DAILY 12/12/16 [History] Lisinopril 20 mg PO DAILY 12/12/16 [History] amLODIPine [Norvasc] 10 mg PO DAILY 12/12/16 [History] Pantoprazole Sodium [Protonix] 40 mg PO BID #120 suspdr.pkt 12/15/16 [Rx] Sucralfate [Carafate] 1 gm PO QIDACANDBED #120 cup 12/15/16 [Rx] Patient Handouts: Peptic Ulcer, [id number], Food Choices for Gastroesophageal Reflux Disease, Adult, Blood Transfusion , Esophagogastroduodenoscopy, Care After Referrals: Teresita Flores MD [Physician] - (Follow-up in one week.) PCP,None [Primary Care Provider] - - Discharge Summary/Plan Comment DC Time >30 min.: Yes (40 min) - General Info Date of Service: 12/15/16 Admission Dx/Problem (Free Text: GI Bleed Doing well this morning S/P EGD/colonoscopy yesterday with Dr. Flores with findings of duodenal ulcer; tolerating diet. No N/V/D. VSS, afebrile. Functional Status: Reports: pain controlled, tolerating diet, ambulating, urinating. Denies: new symptoms - Review of Systems General: Reports: No Symptoms HEENT: Reports: no symptoms Pulmonary: Reports: no symptoms Cardiovascular: Reports: No Symptoms Gastrointestinal: Reports: No symptoms. Denies: Abdominal pain, Constipation, Decreased appetite, Diarrhea, Hematochezia, Melena, Nausea, Vomiting Genitourinary: Reports: no symptoms Musculoskeletal: Reports: no symptoms Skin: Reports: no symptoms Neurological: Reports: No Symptoms Psychiatric: Reports: no symptoms - Patient Data Vitals - Most Recent: Last Vital Signs Temp 97.7 F 12/15/16 03:51 Pulse 77 12/15/16 03:51 Resp 16 12/15/16 03:51 BP 124/80 12/15/16 03:51 Pulse Ox 96 12/15/16 03:51 Weight - Most Recent: 194 lb 11.2 oz I&O - Last 24 hours: Intake & Output 12/14/16 12/14/16 12/15/16 14:59 22:59 06:59 Intake Total 150 Output Total 800 Balance -800 150 Med Orders - Current: Current Medications Acetaminophen (Tylenol) 650 mg PO Q4H PRN PRN Reason: Pain (Mild 1-3)/fever Hydrocodone Bitart/Acetaminophen ([place] 325-5 Mg) 1 tab PO Q4H PRN PRN Reason: Pain (moderate 4-6) Albuterol (Proventil Neb Soln) 2.5 mg NEB Q2H PRN PRN Reason: Shortness Of Breath/wheezing Amlodipine Besylate (Norvasc) 10 mg PO DAILY [facility] Last Admin: 12/14/16 10:03 Dose: Not Given Hydrochlorothiazide (Hydrochlorothiazide) 50 mg PO DAILY [facility] Last Admin: 12/14/16 10:03 Dose: Not Given Hydromorphone HCl (Dilaudid) 0.25 mg IVPUSH Q2H PRN PRN Reason: Pain (severe 7-10) Lisinopril (Prinivil) 20 mg PO DAILY [facility] Last Admin: 12/14/16 10:04 Dose: Not Given Magnesium Sulfate (Pharmacy To Dose - Magnesium Replacement) 0 dose .XX ASDIRECTED PRN PRN Reason: rx dose Ondansetron HCl (Zofran) 4 mg IV Q6H PRN PRN Reason: Nausea/Vomiting Pantoprazole Sodium (Protonix Iv) 40 mg IV Q12HR [facility] Last Admin: 12/14/16 21:45 Dose: 40 mg Potassium Chloride (Pharmacy To Dose - Potassium Replacement) 1 dose .XX ASDIRECTED PRN PRN Reason: rx dose Sodium Chloride (Saline Flush) 10 ml FLUSH ASDIRECTED PRN PRN Reason: Keep Vein Open Last Admin: 12/12/16 15:37 Dose: 10 ml Sucralfate (Carafate) 1 gm PO QIDACANDBED [facility] Last Admin: 12/15/16 06:38 Dose: 1 gm Temazepam (Restoril) 30 mg PO BEDTIME PRN PRN Reason: Sleep Discontinued Medications Acetaminophen (Tylenol) 650 mg PO NOW ONE Stop: 12/13/16 12:05 Last Admin: 12/13/16 13:24 Dose: 650 mg Diphenhydramine HCl (Benadryl) 25 mg PO ONETIME ONE Stop: 12/13/16 12:05 Last Admin: 12/13/16 13:23 Dose: 25 mg Ephedrine Sulfate (Ephedrine In Ns) Confirm Administered Dose 25 mg .ROUTE .STK- MED ONE Stop: 12/14/16 17:58 Fentanyl (Sublimaze) Confirm Administered Dose 100 mcg .ROUTE .STK-MED ONE Stop: 12/14/16 17:04 Hydromorphone HCl (Dilaudid) 0.25 mg IVPUSH Q2H PRN PRN Reason: Pain (severe 7-10) Sodium Chloride (Normal Saline) 1,000 mls @ 250 mls/hr IV ONETIME ONE Stop: 12/12/16 19:11 Last Admin: 12/12/16 15:38 Dose: 250 mls/hr Dextrose/Sodium Chloride (Dextrose 5%-1/2 Ns) 1,000 mls @ 150 mls/hr IV ASDIRECTED ERMIAS Last Admin: 12/13/16 17:57 Dose: 150 mls/hr Iron Sucrose 500 mg/ Sodium (Chloride) 275 mls @ 75 mls/hr IV ONETIME ONE Stop: 12/13/16 15:42 Last Admin: 12/13/16 13:24 Dose: 75 mls/hr Sodium Chloride (Normal Saline) 250 mls @ 250 mls/hr IV ASDIRECTED ERMIAS Sodium Chloride (Normal Saline) Confirm Administered Dose 100 mls @ as directed .ROUTE .STK-MED ONE Stop: 12/13/16 19:37 Last Admin: 12/13/16 20:15 Dose: Not Given Lidocaine HCl (Xylocaine-Mpf 1%) Confirm Administered Dose 4 mls @ as directed .ROUTE .STK-MED ONE Stop: 12/14/16 17:06 Magnesium Oxide (Magnesium Oxide) 800 mg PO ONETIME ONE Stop: 12/13/16 21:01 Last Admin: 12/13/16 20:14 Dose: 400 mg Magnesium Oxide (Magnesium Oxide) 400 mg PO ONETIME ONE Stop: 12/13/16 20:23 Last Admin: 12/13/16 21:00 Dose: 400 mg Midazolam HCl (Versed 1 Mg/Ml) Confirm Administered Dose 2 mg .ROUTE .STK-MED ONE Stop: 12/14/16 17:04 Pantoprazole Sodium (Protonix Iv) 40 mg IVPUSH ONETIME ONE Stop: 12/12/16 15:14 Last Admin: 12/12/16 15:33 Dose: 40 mg Polyethylene Glycol/Electrolytes (Golytely) 4,000 ml PO ONETIME ERMIAS Stop: 12/14/16 08:00 Last Admin: 12/13/16 17:52 Dose: 4,000 ml Potassium Chloride (Klor-Con M20) 60 meq PO ONETIME ONE Stop: 12/13/16 21:01 Last Admin: 12/13/16 20:13 Dose: 60 meq Propofol (Diprivan 20 Ml) Confirm Administered Dose 200 mg .ROUTE .STK-MED ONE Stop: 12/14/16 17:04 Propofol (Diprivan 20 Ml) Confirm Administered Dose 200 mg .ROUTE .STK-MED ONE Stop: 12/14/16 18:01 Temazepam (Restoril) 30 mg PO BEDTIME PRN PRN Reason: Sleep - Exam Quality Assessment: Reports: DVT prophylaxis General: Reports: alert, oriented, cooperative, no acute distress HEENT: Reports: Pupils equal, Pupils reactive, EOMI, Mucous membr. moist/pink Neck: Reports: supple Lungs: Reports: Clear to auscultation, Normal respiratory effort Cardiovascular: Reports: Regular Rate, Regular Rhythm Abdomen: Reports: bowel sounds present, soft, no tenderness, no distension (Male) Exam: Deferred Rectal (Males) Exam: Deferred Back Exam: Reports: normal inspection Extremities: Reports: no edema Skin: Reports: warm, dry, intact Neurological: Reports: no new focal deficit Psy/Mental Status: Reports: alert, normal affect, normal mood *Q Meaningful Use (DIS) - VTE *Q VTE Criteria *Q: - Stroke *Q Stroke Criteria *Q: - AMI *Q AMI Criteria *Q:
[2016-12-15] MEDS: Hydrochlorothiazide 25 MG Tab PO SCH (08:20)
[2016-12-15] MEDS: Pantoprazole 40 MG Vial IV SCH (08:20)
[2016-12-15] MEDS: amLODIPine 10 MG Tab PO SCH (08:21)
[2016-12-15] MEDS: Lisinopril 20 MG Tab PO SCH (08:21)
[2016-12-15 08:23] VITALS: BP 123/75
== END 2016-12-15 09:45 | disposition home or self-care (01) | DRG 379 ==
LOC: JD.ED 14:37 → JD.MS 17:00
PROVIDERS: ADMIT Internal Medicine; ATTEND Internal Medicine
PROC: 30233N1 Transfusion of Nonautologous Red Blood Cells into Peripheral Vein, Percutaneous Approach (ICD-10-PCS; principal; 2016-12-12)
PROC: 30233N1 Transfusion of Nonautologous Red Blood Cells into Peripheral Vein, Percutaneous Approach (ICD-10-PCS; 2016-12-13)
PROC: 0DB38ZX Excision of Lower Esophagus, Via Natural or Artificial Opening Endoscopic, Diagnostic (ICD-10-PCS; 2016-12-14)
PROC: 0DJD8ZZ Inspection of Lower Intestinal Tract, Via Natural or Artificial Opening Endoscopic (ICD-10-PCS; 2016-12-14)
PROC: 0DBA8ZX Excision of Jejunum, Via Natural or Artificial Opening Endoscopic, Diagnostic (ICD-10-PCS; 2016-12-14)
PROC: 0DB98ZX Excision of Duodenum, Via Natural or Artificial Opening Endoscopic, Diagnostic (ICD-10-PCS; 2016-12-14)
DX: K26.4 Chronic or unspecified duodenal ulcer with hemorrhage (principal); I10 Essential (primary) hypertension; I95.1 Orthostatic hypotension; R42 Dizziness and giddiness; R00.0 Tachycardia, unspecified; K64.8 Other hemorrhoids; D50.0 Iron deficiency anemia secondary to blood loss (chronic)
CPT/HCPCS: 36415; 36430; 71010; 71010-26; 80048; 80053; 81001; 82270; 83690; 83735; 84484; 85014; 85018; 85025; 85610; 85730; 86140; 86850; 86900; 86901; 86922; 88305; 88305-26; 93005; 96361; 96374; 97161-GP; 97165-GO; 99222; 99231; 99232; 99285; 99285-25; A9270-GY; C9113; J1756; J2250; J2704; J3010; J7040; J7042; J7050; P9016